=== PATIENT | male | born 1950 | race Caucasian/White ===

== ENCOUNTER 2018-01-24 04:26 | Emergency (ER) | payer MEDICARE, BC ==
[2018-01-24 04:37] VITALS: PULSE 59
[2018-01-24 05:14] LABS: Appearance,Urine Clear (Clear); Bilirubin,Urine Negative (Negative); Blood,Urine Large (Negative); Color,Urine Colorless; Glucose,Urine (UA) Negative (Negative); Ketones,Urine Negative (Negative); Leukocyte Esterase,Urine Large (Negative); Mucus,Urine Rare /hpf; Nitrite,Urine Negative (Negative); Protein,Urine Negative (Negative); Specific Gravity,Urine 1.002 (1.001-1.035); Urobilinogen,Urine <2.0 mg/dL (<2.0); WBC,Urine 79 /hpf (0-5)
[2018-01-24] MEDS ORDERED: LEVOFLOXACIN 750 MG TAB PO STA (05:43)
--- NOTE | 2018-01-24 05:46 | ED ---
Male Urogenital HPI - General Chief complaint: Urogenital Stated complaint: UTI Time Seen by Provider: 01/24/18 04:55 Source: patient Mode of arrival: ambulatory Limitations: no limitations - History of Present Illness Initial comments: This patient is a 67-year-old man with history of chronic prostatitis who presents because he believes he is having symptoms of recurrence of this. He states that this is identical to previous episodes. He states that around 2:00 he got up from bed and had to use the bathroom. Since that time he has had burning with urination. He has been having pain to the low back, just to the right. He states that this is a identical. He has been having episodes like this for many years. He does see the urologist, Dr. Thompson. Patient denies systemic symptoms, including no fever or chills, palpitations, or other symptoms. MD Complaint: dysuria Onset/Timin -: hour(s) Location: right flank Radiation: none Severity: moderate Quality: burning Consistency: constant Improves with: none Worsens with: urination Reports: denies other symptoms - Related Data Previous Rx's Medication Instructions Recorded Ciprofloxacin HCl [Cipro] 500 mg PO Q12HR #28 tablet 01/24/18 Allergies Allergy/AdvReac Type Severity Reaction Status Date / Time Penicillins AdvReac Abdominal Verified 01/24/18 04:36 Pain Review of Systems ROS Statement: Those systems with pertinent positive or pertinent negative responses have been documented in the HPI. ROS Other: All systems not noted in ROS Statement are negative. Constitutional: Denies: fever, chills, weakness Respiratory: Denies: cough, dyspnea Cardiovascular: Denies: chest pain, palpitations, edema Gastrointestinal: Reports: as per HPI. Denies: abdominal pain, nausea, vomiting , diarrhea Genitourinary: Reports: as per HPI, dysuria, frequency. Denies: hematuria, discharge, testicular pain, testicular mass Musculoskeletal: Reports: as per HPI, back pain Skin: Denies: rash Neurological: Denies: headache, weakness, numbness Past Medical History Past Medical History: GERD/Reflux, Hypertension History of Any Multi-Drug Resistant Organisms: None Reported Past Surgical History: Back Surgery, Cholecystectomy, Tonsillectomy Past Psychological History: No Psychological Hx Reported Smoking Status: Never smoker Past Alcohol Use History: None Reported Past Drug Use History: None Reported General Exam Limitations: no limitations General appearance: alert, in no apparent distress Head exam: Present: atraumatic, normocephalic Eye exam: Present: normal appearance. Absent: scleral icterus, conjunctival injection Respiratory exam: Present: normal lung sounds bilaterally. Absent: respiratory distress, wheezes, rales, rhonchi, stridor Cardiovascular Exam: Present: regular rate, normal rhythm, normal heart sounds. Absent: systolic murmur, diastolic murmur, rubs, gallop GI/Abdominal exam: Present: soft, normal bowel sounds. Absent: distended, tenderness, guarding, rebound, rigid, mass, pulsatile mass, hernia Extremities exam: Present: normal inspection, normal capillary refill. Absent: pedal edema, calf tenderness Back exam: Absent: CVA tenderness (R), CVA tenderness (L) Skin exam: Present: warm, dry, intact, normal color. Absent: rash Course Vital Signs 01/24/18 04:33 Temperature 97.6 F Pulse Rate 59 L Respiratory 24 Rate Blood Pressure 143/100 O2 Sat by Pulse 99 Oximetry Medical Decision Making - Lab Data Lab Results 01/24/18 Range/Units 04:59 Urine Color Colorless Urine Appearance Clear (Clear) Urine pH 7.0 (5.0-8.0) Ur Specific [place] 1.002 (1.001-1.035) Urine Protein Negative (Negative) Urine Glucose (UA) Negative (Negative) Urine Ketones Negative (Negative) Urine Blood Large H (Negative) Urine Nitrite Negative (Negative) Urine Bilirubin Negative (Negative) Urine Urobilinogen <2.0 (<2.0) mg/dL Ur Leukocyte Esterase Large H (Negative) Urine WBC 79 H (0-5) /hpf Urine Mucus Rare H (None) /hpf Disposition Clinical Impression: Prostatitis Disposition: HOME SELF-CARE Condition: Fair Instructions: Prostatitis (ED) Prescriptions: Ciprofloxacin HCl [Cipro] 500 mg PO Q12HR #28 tablet Is patient prescribed a controlled substance at d/c from ED?: No Referrals: Luiz Posadas MD [Primary Care Provider] - 1-2 days
[2018-01-24 06:43] VITALS: BP 135/87; RESP 19; TEMP 97.5
[2018-01-26 14:15] LABS: C. trachomatis,PCR Negative (Neg,Equiv); Chlamydia trachomatis Source Urine; N. gonorrhoeae,PCR Negative (Neg,Equiv); Neisseria Source Urine
== END 2018-01-24 06:30 | disposition home or self-care (01) ==
LOC: EC 04:26
DX: N41.9 Inflammatory disease of prostate, unspecified (principal); Z90.49 Acquired absence of other specified parts of digestive tract; Z98.890 Other specified postprocedural states; Z88.0 Allergy status to penicillin
CPT/HCPCS: 51798; 81001; 87491; 87591; 99283

== ENCOUNTER → 2019-01-03 | Outpatient (CLI) | payer MEDICARE ==
--- NOTE | 2019-01-03 15:52 | XR ---
EXAMINATION TYPE: XR chest 2V DATE OF EXAM: 01/03/2019 COMPARISON: Prior chest x-ray 08/31/2012 HISTORY: Bronchitis TECHNIQUE: Frontal and lateral views of the chest are obtained. FINDINGS: There is no focal air space opacity, pleural effusion, or pneumothorax seen. The cardiac silhouette size is within normal limits. The aorta is dense and tortuous. There is bronchial wall thi ckening. The osseous structures are intact. IMPRESSION: Correlate for bronchitis, reactive airways disease
== END | disposition home or self-care (01) ==
LOC: RADXRMAIN 14:05
PROVIDERS: ATTEND Internal Medicine
DX: J20.9 Acute bronchitis, unspecified (principal)
CPT/HCPCS: 71046

== ENCOUNTER 2019-09-21 09:13 | Day surgery (SDC) | payer MEDICARE ==
[2019-09-16 21:05] VITALS: BMI 29.0
[~2019-09-21 09:13] MED LIST: LACTATED RINGERS 1,000 ML IV SCH; LIDOCAINE 1% (10MG/ML) FOR IV START INTRADERMA PRN
[2019-09-21 10:02] VITALS: TEMP 97.8
[2019-09-21] MEDS ORDERED: LIDOCAINE 1% INJ 10MG/ML (20 ML MDV) ONE (10:13)
[2019-09-21] MEDS ORDERED: PROPOFOL 10 MG/ML 20 ML VIAL IV ONE (10:13)
--- NOTE | 2019-09-21 10:20 | P.GSHP ---
History of Present Illness H&P Date: 09/21/19 Chief Complaint: GERD, abdominal pain, history of polyps Patient today for upper and lower endoscopy. Last endoscopy over 5 years ago. Per the admitting diagnosis history of polyp. Complaining of intermittent abdominal pains and nausea. Past Medical History Past Medical History: Cancer, GERD/Reflux, Hearing Disorder / Deafness, Hyperlipidemia, Hypertension Additional Past Medical History / Comment(s): SKIN CANCER History of Any Multi-Drug Resistant Organisms: None Reported Past Surgical History: Back Surgery, Cholecystectomy, Tonsillectomy Additional Past Surgical History / Comment(s): COLONOSCOPY Past Anesthesia/Blood Transfusion Reactions: Previous Problems w/ Anesthesia Additional Past Anesthesia/Blood Transfusion Reaction / Comment(s): PREVIOUS DIFFICULT INTUBATION - RECEIVED A LETTER-UNABLE TO FIND IT Past Psychological History: No Psychological Hx Reported Smoking Status: Never smoker Past Alcohol Use History: None Reported Past Drug Use History: None Reported - Past Family History Mother Sister(s) Family Medical History: Cancer Medications and Allergies Home Medications Medication Instructions Recorded Confirmed Type Atorvastatin [Lipitor] 20 mg PO 1400 09/16/19 09/16/19 History Dicyclomine [Bentyl] 10 mg PO DAILY 09/16/19 09/16/19 History Omeprazole [PriLOSEC] 40 mg PO DAILY 09/16/19 09/16/19 History amLODIPine [Norvasc] 5 mg PO HS 09/16/19 09/16/19 History Allergies Allergy/AdvReac Type Severity Reaction Status Date / Time sulfamethoxazole Allergy Abdominal Verified 09/16/19 15:53 [From Bactrim] Pain trimethoprim [From Bactrim] Allergy Abdominal Verified 09/16/19 15:53 Pain Penicillins AdvReac Abdominal Verified 09/16/19 15:51 Pain Surgical - Exam Vital Signs Temp Pulse Resp BP Pulse Ox 97.8 F 67 16 129/87 99 09/21/19 09:58 09/21/19 09:58 09/21/19 09:58 09/21/19 09:58 09/21/19 09:58 Physical exam: General: Well-developed, well-nourished HEENT: Normocephalic, sclerae nonicteric Abdomen: Nontender, nondistended Extremities: No edema Neuro: Alert and oriented Assessment and Plan (1) GERD (gastroesophageal reflux disease) Narrative/Plan: Will proceed with upper and lower endoscopy Current Visit: Yes Status: Acute Code(s): K21.9 - GASTRO-ESOPHAGEAL REFLUX DISEASE WITHOUT ESOPHAGITIS SNOMED Code(s): 905149418
--- NOTE | 2019-09-21 10:53 | P.PCN ---
Date of Procedure: 09/21/19 Procedure(s) Performed: PREOPERATIVE DIAGNOSIS: GERD, abdominal pain, anal polyp POSTOPERATIVE DIAGNOSIS: Gastritis, gastric polyp, cecal polyp, sigmoid polyp PROCEDURE: 1. EGD with biopsy 2. Colonoscopy with snare polypectomy ANESTHESIA: MAC SURGEON: Mo Khalil M.D. SPECIMENS: Polyps, antrum ENDOSCOPIC PROCEDURE: The patient was on the endoscopy table in the left decubitus position. The Olympus gastroscope was inserted into the oropharynx and passed under direct visualization to the region of the third portion of the duodenum. From that point the scope was slowly withdrawn inspecting all surfaces carefully. There were no neoplastic inflammatory or polypoid lesions throughout the duodenum. The pylorus was widely patent. The stomach was carefully inspected. There was mild gastritis present. A biopsy of the antrum took place to rule out H. pylori. In the proximal stomach a few small polyps are identified that appeared benign. One of these were removed. Retroflexion revealed a normal hiatus. The esophagus was then carefully examined. There were no neoplastic inflammatory or polypoid lesions throughout the visualized esophagus. The patient was kept on the endoscopy table in the left decubitus position. The Olympus colonoscope was inserted into the anus and passed under direct visualization to the base of the cecum. The appendiceal orifice was visualized. From that point the scope was slowly withdrawn inspecting all surfaces carefully. There was noted to be a 2 x 1 cm polyp at the proximal ascending colon just distal to the valve itself. This was removed in a piecemeal fashion using the snare with cautery technique. No bleeding was seen. The remainder of the cecum, ascending, transverse, and descending colon. In the sigmoid colon a small polyp was identified and removed using the snare with cautery technique. The remainder of the sigmoid and rectum was normal. Digital rectal examination was normal. The patient was taken to the recovery room in stable condition per anesthesia guidelines. RECOMMENDATIONS: Await biopsy results. Will require short-term follow-up colonoscopy 6
[2019-09-21 11:11] VITALS: BP 130/86; PULSE 57; RESP 18
== END 2019-09-21 11:34 | disposition home or self-care (01) ==
LOC: ORWHC2ENDO 09:13
PROVIDERS: ATTEND Surgery
DX: D12.5 Benign neoplasm of sigmoid colon (principal); K29.50 Unspecified chronic gastritis without bleeding; K31.7 Polyp of stomach and duodenum; K63.5 Polyp of colon; K21.9 Gastro-esophageal reflux disease without esophagitis; H91.90 Unspecified hearing loss, unspecified ear; E78.5 Hyperlipidemia, unspecified; I10 Essential (primary) hypertension; Z85.828 Personal history of other malignant neoplasm of skin; Z90.49 Acquired absence of other specified parts of digestive tract; Z98.890 Other specified postprocedural states; Z80.9 Family history of malignant neoplasm, unspecified; Z79.899 Other long term (current) drug therapy; Z88.0 Allergy status to penicillin; Z88.2 Allergy status to sulfonamides
CPT/HCPCS: 88305; 45385; 43239; J2001; J2704

== ENCOUNTER → 2019-09-28 | Outpatient (CLI) | payer MEDICARE ==
--- NOTE | 2019-09-28 16:11 | XR ---
Right wrist HISTORY: Right wrist pain, trauma one month prior Four views of the right wrist There are vascular calcifications noted. Osteoarthritic changes are present. Alignment, bone minerali zation are maintained. IMPRESSION: No evident fracture or dislocation. Wrist MRI may be of benefit.
== END | disposition home or self-care (01) ==
LOC: RADXRMAIN 14:26
PROVIDERS: ATTEND Internal Medicine
DX: M25.531 Pain in right wrist (principal)

== ENCOUNTER 2020-05-08 07:11 | Day surgery (SDC) | payer MEDICARE ==
[2020-05-04 08:29] VITALS: BMI 28.8
[~2020-05-08 07:11] MED LIST changes: -LIDOCAINE 1% (10MG/ML) FOR IV START INTRADERMA PRN
[2020-05-08 07:32] VITALS: RESP 16; TEMP 97.7
[2020-05-08] MEDS ORDERED: LIDOCAINE 1% (10MG/ML) FOR IV START INTRADERMA ONE (07:34)
[2020-05-08] MEDS ORDERED: PROPOFOL 10 MG/ML 20 ML VIAL IV ONE (08:00)
--- NOTE | 2020-05-08 08:15 | P.GSHP ---
History of Present Illness H&P Date: 05/08/20 Chief Complaint: Colon polyp 70-year-old male was here in September and underwent colonoscopy. 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 This was removed in a piecemeal fashion. Doing well since then. No symptoms. 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 History of Any Multi-Drug Resistant Organisms: None Reported Past Surgical History: Back Surgery, Cholecystectomy, Tonsillectomy Additional Past Surgical History / Comment(s): COLONOSCOPY /EGD Past Anesthesia/Blood Transfusion Reactions: Previous Problems w/ Anesthesia Additional Past Anesthesia/Blood Transfusion Reaction / Comment(s): PREVIOUS DIFFICULT INTUBATION - LETTER FROM ANESTHESIA ON CHART-STATES GLIDESCOPE WAS USED. -THIS WAS WITH SURGERY FOR LUMBAR DISCECTOMY 12/18/2011. Past Psychological History: No Psychological Hx Reported Smoking Status: Never smoker Past Alcohol Use History: Rare Past Drug Use History: None Reported - Past Family History Mother Sister(s) Family Medical History: Cancer Additional Family Medical History / Comment(s): 2 SISTERS- FEMALE CANCER AND TUMOR ON BACK. Medications and Allergies Home Medications Medication Instructions Recorded Confirmed Type Atorvastatin [Lipitor] 20 mg PO PC-LUNCH 09/16/19 05/08/20 History Dicyclomine [Bentyl] 10 mg PO BID 09/16/19 05/08/20 History Omeprazole [PriLOSEC] 40 mg PO DAILY 09/16/19 05/08/20 History amLODIPine [Norvasc] 5 mg PO HS 09/16/19 05/08/20 History Allergies Allergy/AdvReac Type Severity Reaction Status Date / Time sulfamethoxazole Allergy Abdominal Verified 05/04/20 08:04 [From Bactrim] Pain trimethoprim [From Bactrim] Allergy Abdominal Verified 05/04/20 08:04 Pain Penicillins AdvReac Abdominal Verified 05/04/20 08:04 Pain Surgical - Exam Vital Signs Temp Pulse Resp BP Pulse Ox 97.7 F 56 L 16 140/86 96 05/08/20 07:24 05/08/20 07:24 05/08/20 07:24 05/08/20 07:24 05/08/20 07:24 Physical exam: General: Well-developed, well-nourished HEENT: Normocephalic, sclerae nonicteric Abdomen: Nontender, nondistended Extremities: No edema Neuro: Alert and oriented Assessment and Plan (1) Colon polyp Narrative/Plan: Will proceed with colonoscopy Current Visit: Yes Status: Acute Code(s): K63.5 - POLYP OF COLON SNOMED Code(s): 24084857
--- NOTE | 2020-05-08 08:35 | P.PCN ---
Date of Procedure: 05/08/20 Procedure(s) Performed: PREOPERATIVE DIAGNOSIS: Colon polyp POSTOPERATIVE DIAGNOSIS: Normal exam PROCEDURE: Colonoscopy ANESTHESIA: MAC SURGEON: Mo Khalil M.D. SPECIMENS: None ENDOSCOPIC PROCEDURE: The patient was placed on the endoscopy table in the left decubitus position. The Olympus colonoscope was inserted into the anus and passed under direct visualization to the base of the cecum. The appendiceal orifice was visualized. From that point the scope was slowly withdrawn inspecting all surfaces carefully. There were no neoplastic inflammatory or polypoid lesions throughout the cecum, ascending, transverse, descending, sigmoid and rectum. Careful attention to the cecum and ascending colon to look for the recent polyp was made. I could not visualize any residual polypoid tissue or scarring. There was no visible diverticulosis noted. Digital rectal examination was normal. The patient was taken to the recovery room in stable condition per anesthesia guidelines. RECOMMENDATIONS: Resume diet. Follow colonoscopy 3 years.
[2020-05-08 08:59] VITALS: BP 123/87; PULSE 53
== END 2020-05-08 09:15 | disposition home or self-care (01) ==
LOC: ORWHC2ENDO 07:11
PROVIDERS: ATTEND Surgery
DX: Z12.11 Encounter for screening for malignant neoplasm of colon (principal); Z86.010 Personal history of colon polyps; K21.9 Gastro-esophageal reflux disease without esophagitis; E78.5 Hyperlipidemia, unspecified; I10 Essential (primary) hypertension; Z85.828 Personal history of other malignant neoplasm of skin; J61 Pneumoconiosis due to asbestos and other mineral fibers; Z86.11 Personal history of tuberculosis; Z87.440 Personal history of urinary (tract) infections; N41.1 Chronic prostatitis; Z90.49 Acquired absence of other specified parts of digestive tract; Z98.890 Other specified postprocedural states; Z80.8 Family history of malignant neoplasm of other organs or systems; Z79.899 Other long term (current) drug therapy; Z88.0 Allergy status to penicillin; Z88.2 Allergy status to sulfonamides
CPT/HCPCS: J2704; G0105; 45378

== ENCOUNTER → 2020-08-02 | Outpatient (CLI) | payer MEDICARE ==
--- NOTE | 2020-08-02 09:22 | US ---
EXAMINATION TYPE: US liver DATE OF EXAM: 08/02/2020 COMPARISON: CT & US 2012 CLINICAL HISTORY: E80.7 Disorder of bilirubin metabolism, unspecified. Elevated bilirubin, gallbladde r removed EXAM MEASUREMENTS: Liver Length: 13.9 cm CBD: 0.3 cm Right Kidney: 11.6 x 5.7 x 5.5 cm Pancreas: obscured by overlying midline bowel gas Liver: wnl Gallbladder: surgically absent Evidence for sonographic Garsia's sign: no CBD: visualized portions wnl, limited by overlying bowel gas Right Kidney: wnl IMPRESSION: 1. Normal right upper quadrant ultrasound
== END | disposition home or self-care (01) ==
LOC: RADUSWWP 08:45
PROVIDERS: ATTEND Internal Medicine
DX: E80.7 Disorder of bilirubin metabolism, unspecified (principal)
CPT/HCPCS: 76705

== ENCOUNTER → 2021-10-23 | Outpatient (CLI) | payer MEDICARE ==
--- NOTE | 2021-10-23 13:46 | XR ---
EXAMINATION TYPE: XR sacrum coccyx DATE OF EXAM: 10/23/2021 COMPARISON: NONE HISTORY: Pain Three views are submitted. Sacrum is intact. Vascular calcifications. Right-sided SI joint arthropat hy.. Coccyx appears to be intact. Visualized pelvic structures intact. IMPRESSION: 1. No acute fracture.
== END | disposition home or self-care (01) ==
LOC: RADXRMAIN 13:19
PROVIDERS: ATTEND Internal Medicine
DX: M53.3 Sacrococcygeal disorders, not elsewhere classified (principal)
CPT/HCPCS: 72220

== ENCOUNTER 2022-03-05 08:40 | Inpatient (IN) | payer MEDICARE ==
[2022-03-05 10:35] LABS: Appearance,Urine Clear (Clear); Bilirubin,Urine Negative (Negative); Blood,Urine Negative (Negative); Color,Urine Light Yellow; Glucose,Urine (UA) 1+ (Negative); Ketones,Urine Negative (Negative); Leukocyte Esterase,Urine Negative (Negative); Nitrite,Urine Negative (Negative); Protein,Urine Negative (Negative); Specific Gravity,Urine 1.013 (1.001-1.035); Urobilinogen,Urine <2.0 mg/dL (<2.0)
[2022-03-05] MEDS ORDERED: ONDANSETRON 4 MG/2 ML VIAL IVP STA ×2 (10:40→13:10)
[2022-03-05] MEDS ORDERED: MORPHINE SULFATE 4 MG/ML SYRINGE IVP STA (10:40)
[2022-03-05] MEDS ORDERED: SODIUM CHLORIDE 0.9% 1,000 ML IV STA ×3 (10:41→13:10)
[2022-03-05] MEDS ORDERED: HYDROmorphone 0.5 MG/0.5 ML SYRINGE IVP STA ×2 (10:58→12:07)
[2022-03-05] MEDS ORDERED: FAMOTIDINE 20 MG/2 ML VIAL IV STA (10:59)
[2022-03-05] MEDS ORDERED: diphenhydrAMINE 50 MG/ML 1 ML VIAL IVP STA (10:59)
[2022-03-05 11:04] LABS: Basophils % (A) 0 %; Eosinophils # (A) 0.1 k/uL (0-0.7); Eosinophils % (A) 1 %; HCT 48.3 % (39.0-53.0); HGB 16.2 gm/dL (13.0-17.5); Lymphocytes # (A) 1.3 k/uL (1.0-4.8); Lymphocytes % (A) 12 %; MCHC 33.6 g/dL (31.0-37.0); MCV 101.1 fL (80.0-100.0); Mean Platelet Volume 7.6; Monocytes # (A) 0.8 k/uL (0-1.0); Monocytes % (A) 7 %; Neutrophils % (A) 80 %; Platelet Count 238 k/uL (150-450); RBC 4.78 m/uL (4.30-5.90); RDW 12.7 % (11.5-15.5); WBC 11.3 k/uL (3.8-10.6)
[2022-03-05 11:11] LABS: Calcium 9.5 mg/dL (8.4-10.2); Potassium 3.8 mmol/L (3.5-5.1); Total Bilirubin 1.8 mg/dL (0.2-1.3); Total Protein 7.7 g/dL (6.3-8.2)
--- NOTE | 2022-03-05 12:32 | CT ---
EXAMINATION TYPE: CT abdomen pelvis w con DATE OF EXAM: 03/05/2022 COMPARISON: 04/01/2013 HISTORY: 72-year-old male Left flank pain, history of renal stones TECHNIQUE: Contiguous axial scanning of the abdomen and pelvis following administration of 100 ml Iso cheyanne 300 IV contrast. Delayed images through the kidneys and coronal/sagittal reconstructions perform ed. CT DLP: 1325.9 mGycm Automated exposure control for dose reduction was used. FINDINGS: Heart normal size without pericardial effusion. Strandy atelectasis in the lower lungs. No pleural ef fusion. Tiny hiatal hernia. No focal liver lesion or biliary ductal dilatation. Portal venous system is patent. Cholecystectomy clips. Prominent 8mm gastric hepatic ligament lymph node, probably reactive/post inflammatory. A few scattered nonenlarged retroperitoneal nodes measuring up to 8 mm. Some borderline-sized 9 mm right lower quadrant mesenteric lymph nodes. No mesenteric or retroperitoneal lymphadenopathy by size criteria. Adrenal glands, right kidney, spleen, and pancreas within normal limits. There is mild left-sided hydronephrosis with perinephric edema and mild to moderate edema tracking do wn the left retroperitoneum, probably some decompression of the ureter from a small urine leak. There is a punctate 2 mm stone at the left ureteral orifice, axial image 86. Delayed excretion of contrast into the left renal collecting system on the delayed kidney images. Some prominent fluid-filled small bowel loops in the right lower quadrant measuring up to 2.6 cm, pro bably transient. Small fatty left inguinal hernia. No abnormal fluid collection in the pelvis or pelvic lymphadenopath y. Bladder partially urine distended. Prostate gland is enlarged at 5.2 cm wide. Bones: Mild degenerative change of both hips. Mild to moderate degenerative change right SI joint. Fa cet arthropathy mid to lower lumbar spine. Moderate degenerative disc disease L4-L5 and mild addition al levels in the lumbar spine. IMPRESSION: 1. A PUNCTATE 2 MM STONE AT THE LEFT URETERAL ORIFICE WITH SECONDARY LEFT-SIDED OBSTRUCTIVE UROPATHY. THE DEGREE OF HYDRONEPHROSIS IS OUT OF PROPORTION TO THE AMOUNT OF STRANDY FLUID TRACKING DOWN THE L EFT RETROPERITONEUM. SUSPECT SOME DECOMPRESSION OF THE URETER FROM A TINY URINE LEAK. 2. TINY HIATAL HERNIA. SMALL FAT-CONTAINING LEFT INGUINAL HERNIA. PROSTATOMEGALY AT 5.2 CM WIDE.
[2022-03-05] MEDS ORDERED: HYDROmorphone 0.5 MG/0.5 ML SYRINGE IVP PRN (13:10)
[2022-03-05] MEDS ORDERED: NALOXONE 0.4 MG/ML 1 ML VIAL IV PRN (13:10)
--- NOTE | 2022-03-05 13:14 | US ---
EXAMINATION TYPE: US kidneys/renal and bladder DATE OF EXAM: 03/05/2022 COMPARISON: CT, dated 03/05/2022 CLINICAL HISTORY: eval for hydronephrosis. left flank pain. Hx frequent UTIs. Evaluate for hydronephr osis, intense left flank pain and midline abdominal pain. EXAM MEASUREMENTS: Right Kidney: 12.7 x 6.5 x 5.6 cm Left Kidney: 12.4 x 6.3 x 7.4 cm Limited due to gas. Right Kidney: Cortical medullary differentiation maintained. No hydronephrosis or masses seen Left Kidney: Cortical medullary differentiation is maintained. Appearance of possible minimally dilat ed mid- lower collecting system Bladder: Appears anechoic Bilateral Jets seen: Right jet seen during exam. IMPRESSION: Exam somewhat limited. Mild left-sided hydronephrosis.
[2022-03-05] MEDS: TAMSULOSIN 0.4 MG CAP.ER.24H PO SCH (13:20)
--- NOTE | 2022-03-05 13:44 | ED ---
General Adult HPI - General Chief complaint: Abdominal Pain Stated complaint: Kidney Stones Time Seen by Provider: 03/05/22 09:58 Source: patient, RN notes reviewed, old records reviewed Mode of arrival: ambulatory Limitations: no limitations - History of Present Illness Initial comments: Patient is a 72-year-old male with past medical history remarkable for prostate issues, hypertension who presents emergency Department complaining of left flank pain that started early this morning. Is having nausea. Patient is unable to get comfortable on the bed. His experiencing severe left-sided flank pain. Denies any hematuria or dysuria. He endorses nausea with nonbilious, bloody emesis. Denies any change in bowel movements and states she is not constipated. Denies any other abdominal pain at this time. Denies chest pain or shortness of breath. Denies fevers or chills. His no other acute complaints. No history of kidney stones. Prescription the pain as sharp, and seems to radiate somewhat towards his back and somewhat down towards his groin. - Related Data Home Medications Medication Instructions Recorded Confirmed Atorvastatin [Lipitor] 20 mg PO PC-LUNCH 09/16/19 05/08/20 Dicyclomine [Bentyl] 10 mg PO BID 09/16/19 05/08/20 Omeprazole [PriLOSEC] 40 mg PO DAILY 09/16/19 05/08/20 amLODIPine [Norvasc] 5 mg PO HS 09/16/19 05/08/20 Allergies Allergy/AdvReac Type Severity Reaction Status Date / Time sulfamethoxazole Allergy Abdominal Verified 03/05/22 09:06 [From Bactrim] Pain trimethoprim [From Bactrim] Allergy Abdominal Verified 03/05/22 09:06 Pain Penicillins AdvReac Abdominal Verified 03/05/22 09:06 Pain Review of Systems ROS Statement: Those systems with pertinent positive or pertinent negative responses have been documented in the HPI. Review of Systems: CONST: Denies fever EYES: Denies blurry vision ENT: Denies nasal congestion C/V: Denies Chest pain RESP: Denies shortness of breath GI: Endorses abdominal pain : Denies dysuria SKIN: Denies rash. MSK: Denies joint pain. NEURO: Denies headache ROS Other: All systems not noted in ROS Statement are negative. 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 History of Any Multi-Drug Resistant Organisms: None Reported Past Surgical History: Back Surgery, Cholecystectomy, Tonsillectomy Additional Past Surgical History / Comment(s): COLONOSCOPY /EGD Past Anesthesia/Blood Transfusion Reactions: Previous Problems w/ Anesthesia Additional Past Anesthesia/Blood Transfusion Reaction / Comment(s): PREVIOUS DIFFICULT INTUBATION - LETTER FROM ANESTHESIA ON CHART-STATES GLIDESCOPE WAS USED. -THIS WAS WITH SURGERY FOR LUMBAR DISCECTOMY 12/18/2011. Past Psychological History: No Psychological Hx Reported Smoking Status: Never smoker Past Alcohol Use History: Rare Past Drug Use History: None Reported - Past Family History Mother Sister(s) Family Medical History: Cancer Additional Family Medical History / Comment(s): 2 SISTERS- FEMALE CANCER AND TUMOR ON BACK. General Exam - General Exam Comments Initial Comments: General: Appears in moderate distress secondary to pain and active nausea and vomiting. HEAD: Normal with no signs of head trauma. EYES: PERRLA, EOMI, conjunctiva normal, no discharge. ENT: Hearing grossly intact, normal oropharynx. RESPIRATORY: Clear breath sounds bilaterally. No wheezes, rales, or rhonchi. C/V: Regular rate and rhythm. S1 and S2 auscultated, no edema, peripheral pulses 2+ and intact throughout ABD: Abdomen is soft, nondistended. Tender to palpation over the left flank and left lower quadrant. No CVA tenderness to percussion. No guarding. No rebound tenderness. No peritoneal signs. EXT: Normal range of motion, no obvious deformity SKIN: No rashes or lesions observed on exposed skin. NEURO: Alert and oriented 4. Limitations: no limitations Course Vital Signs 03/05/22 03/05/22 09:02 13:25 Temperature 98.9 F Pulse Rate 55 L 62 Respiratory 20 18 Rate Blood Pressure 161/85 151/88 O2 Sat by Pulse 99 96 Oximetry Medical Decision Making - Medical Decision Making Based on the patient's presentation and physical exam, I'm concerned for age abdominal process for the patient's current symptoms. Strongly suspect kidney stone but cannot rule out other etiology. Does have a history of chronic prostate issues. We'll obtain abdominal laboratory studies, urine studies. We'll also obtain an ultrasound of the kidney and bladder as well as a CT abdomen and pelvis. He'll be treated with IV analgesia and antiemetics as well as GI cocktail and fluids. Patient was in agreement this plan. Laboratory studies are remarkable for a slight leukocytosis of 11.3 which is likely reactive. Lactic acid is elevated to 3.0, likely secondary to dehydration from intractable nausea and vomiting. We'll continue to monitor. Urinalysis is unremarkable. Remainder the labs are unremarkable. CT abdomen and pelvis revealed a small 2 mm nephrolithiasis at the left ureteral orifice with secondary left-sided obstructive uropathy with mild hydronephrosis. There is also a small tiny urine leak on the left side. Prostate is enlarged. Ult rasound revealed mild left-sided hydronephrosis. Patient is required multiple doses of pain medications throughout his stay. Vital signs remain within normal limits. I discussed the findings with him and his . Would like to admit him to the hospital for further monitoring and evaluation. I did consult Dr. Rosen of urology and spoke with him over the phone regarding the urine leak. He was in agreement with the consult. Patient's PCP is off and therefore patient will be admitted under the covering physician, Dr. Robbins who is covering for Dr. Posadas and accepted the patient. Patient was admitted in stable condition. - Lab Data Result diagrams: 03/05/22 10:43 03/05/22 10:43 Lab Results 03/05/22 03/05/22 03/05/22 Range/Units 09:53 10:43 10:43 WBC 11.3 H (3.8-10.6) k/uL RBC 4.78 (4.30-5.90) m/uL Hgb 16.2 (13.0-17.5) gm/dL Hct 48.3 (39.0-53.0) % MCV 101.1 H (80.0-100.0) fL MCH 34.0 (25.0-35.0) pg MCHC 33.6 (31.0-37.0) g/dL RDW 12.7 (11.5-15.5) % Plt Count 238 (150-450) k/uL MPV 7.6 Neutrophils % 80 % Lymphocytes % 12 % Monocytes % 7 % Eosinophils % 1 % Basophils % 0 % Neutrophils # 9.0 H (1.3-7.7) k/uL Lymphocytes # 1.3 (1.0-4.8) k/uL Monocytes # 0.8 (0-1.0) k/uL Eosinophils # 0.1 (0-0.7) k/uL Basophils # 0.0 (0-0.2) k/uL Sodium 142 (137-145) mmol/L Potassium 3.8 (3.5-5.1) mmol/L Chloride 106 (98-107) mmol/L Carbon Dioxide 23 (22-30) mmol/L Anion Gap 13 mmol/L BUN 14 (9-20) mg/dL Creatinine 1.00 (0.66-1.25) mg/dL Est GFR (CKD-EPI)AfAm 87 (>60 ml/min/1.73 sqM) Est GFR (CKD-EPI)NonAf 75 (>60 ml/min/1.73 sqM) Glucose 159 H (74-99) mg/dL Plasma Lactic Acid Ortega (0.7-2.0) mmol/L Calcium 9.5 (8.4-10.2) mg/dL Total Bilirubin 1.8 H (0.2-1.3) mg/dL AST 31 (17-59) U/L ALT 28 (4-49) U/L Alkaline Phosphatase 105 (38-126) U/L Total Protein 7.7 (6.3-8.2) g/dL Albumin 5.0 (3.5-5.0) g/dL Amylase 46 (30-110) U/L Lipase 149 (23-300) U/L Urine Color Light Yellow Urine Appearance Clear (Clear) Urine pH 8.0 (5.0-8.0) Ur Specific Merritt 1.013 (1.001-1.035) Urine Protein Negative (Negative) Urine Glucose (UA) 1+ H (Negative) Urine Ketones Negative (Negative) Urine Blood Negative (Negative) Urine Nitrite Negative (Negative) Urine Bilirubin Negative (Negative) Urine Urobilinogen <2.0 (<2.0) mg/dL Ur Leukocyte Esterase Negative (Negative) 03/05/22 Range/Units 11:17 WBC (3.8-10.6) k/uL RBC (4.30-5.90) m/uL Hgb (13.0-17.5) gm/dL Hct (39.0-53.0) % MCV (80.0-100.0) fL MCH (25.0-35.0) pg MCHC (31.0-37.0) g/dL RDW (11.5-15.5) % Plt Count (150-450) k/uL MPV Neutrophils % % Lymphocytes % % Monocytes % % Eosinophils % % Basophils % % Neutrophils # (1.3-7.7) k/uL Lymphocytes # (1.0-4.8) k/uL Monocytes # (0-1.0) k/uL Eosinophils # (0-0.7) k/uL Basophils # (0-0.2) k/uL Sodium (137-145) mmol/L Potassium (3.5-5.1) mmol/L Chloride (98-107) mmol/L Carbon Dioxide (22-30) mmol/L Anion Gap mmol/L BUN (9-20) mg/dL Creatinine (0.66-1.25) mg/dL Est GFR (CKD-EPI)AfAm (>60 ml/min/1.73 sqM) Est GFR (CKD-EPI)NonAf (>60 ml/min/1.73 sqM) Glucose (74-99) mg/dL Plasma Lactic Acid Ortega 3.0 H* (0.7-2.0) mmol/L Calcium (8.4-10.2) mg/dL Total Bilirubin (0.2-1.3) mg/dL AST (17-59) U/L ALT (4-49) U/L Alkaline Phosphatase (38-126) U/L Total Protein (6.3-8.2) g/dL Albumin (3.5-5.0) g/dL Amylase (30-110) U/L Lipase (23-300) U/L Urine Color Urine Appearance (Clear) Urine pH (5.0-8.0) Ur Specific Merritt (1.001-1.035) Urine Protein (Negative) Urine Glucose (UA) (Negative) Urine Ketones (Negative) Urine Blood (Negative) Urine Nitrite (Negative) Urine Bilirubin (Negative) Urine Urobilinogen (<2.0) mg/dL Ur Leukocyte Esterase (Negative) Disposition Clinical Impression: Left nephrolithiasis, Intractable nausea and vomiting, Intractable abdominal pain, Dehydration Disposition: ADMITTED IP TO THIS HOSP Condition: Stable Referrals: Luiz Posadas MD [Primary Care Provider] - 1-2 days Time of Disposition: 13:00
[2022-03-05] MEDS: HEPARIN SODIUM,PORCINE/PF 5,000 UNIT/0.5 ML SYRINGE SQ SCH ×2 (15:26→23:08)
[2022-03-05] MEDS: ONDANSETRON 4 MG/2 ML VIAL IVP PRN (21:06)
[2022-03-05] MEDS: MORPHINE SULFATE 4 MG/ML SYRINGE IVP PRN (21:06)
[2022-03-05] MEDS: amLODIPine 5 MG TAB PO SCH (21:07)
[2022-03-06] MEDS: MORPHINE SULFATE 4 MG/ML SYRINGE IVP PRN ×5 (00:42→12:49)
[2022-03-06] MEDS: ONDANSETRON 4 MG/2 ML VIAL IVP PRN ×2 (03:20→16:46)
[2022-03-06] MEDS ORDERED: KETOROLAC 15 MG/ML 1 ML VIAL IVP STA (04:02)
--- NOTE | 2022-03-06 04:17 | HP ---
HISTORY AND PHYSICAL CHIEF COMPLAINT: Abdominal pain. HISTORY OF PRESENT ILLNESS: This 72-year-old gentleman with past medical history being followed Dr. Posadas in the outpatient setting, was admitted with abdominal pain. The pain was mostly in the left side and flank pain. The patient was uncomfortable. The patient was given pain medications. Evaluation showed left hydronephrosis. His white count is also elevated, lactic acid elevated. The patient is admitted for evaluation and treatment. There is no history of any fever, rigors, or chills at this time. PAST MEDICAL HISTORY: Reviewed and includes hypertension, hyperlipidemia. HOME MEDICATIONS: Again reviewed and include Norvasc 5 mg daily. Doses and the rest of medications noted. ALLERGIES: Reviewed and include Bactrim. FAMILY HISTORY: Cancer. SOCIAL HISTORY: No history of smoking or alcohol. REVIEW OF SYSTEMS: A 14-point review of systems is negative except as mentioned earlier. PHYSICAL EXAMINATION: VITAL SIGNS: Pulse is 55, blood pressure 161/85, respirations NORMAL ABDOMEN: Soft, mild diffuse tenderness in the left side and left flank tenderness also present. Bowel sounds present. No ascites. EXTREMITIES: Legs, no edema. NERVOUS SYSTEM: No focal deficit. SKIN: No ulcer, rash, bleeding. JOINTS: No active deforming arthropathy. LABORATORY DATA: WBC 11.3. Other labs are noted. ASSESSMENT: 1. Acute left ureterolithiasis and severe pain. 2. Left hydronephrosis and possible urinary tract infection. 3. Hypertension. 4. Hyperlipidemia. 5. Multiple medical issues. RECOMMENDATIONS AND DISCUSSION: This is a 72-year-old gentleman who presented with multiple complex medical issues, we will monitor the patient closely. Symptomatic treatment. Continue the current medication. DVT prophylaxis. I would also recommend a course of antibiotics and obtain the cultures. Resume the home medications once they are confirmed. Closely follow with Urology. Guarded prognosis. Flomax has been initiated. MMODL / IJN: [id number] / MTDD
[2022-03-06] MEDS ORDERED: fentaNYL (PF) 50 MCG/ML 2 ML AMP IVP ONE ×2 (06:40→16:40)
--- NOTE | 2022-03-06 08:09 | P.PN ---
Subjective Progress Note Date: 03/06/22 The patient is in the hospital for a distal but obstructing left ureteral stone. He had pain throughout the nite and sis still in pain this am. I will set him up for a left ureteroscopy and laser lithotripsy later today. Objective - Vital Signs Vital signs: Vital Signs Temp 98.4 F 03/06/22 07:37 Pulse 66 03/06/22 07:37 Resp 17 03/06/22 07:37 BP 134/78 03/06/22 07:37 Pulse Ox 92 L 03/06/22 07:37 FiO2 Intake & Output 03/05/22 03/06/22 03/06/22 18:59 06:59 18:59 Output Total 1240 Balance -1240 Weight 99.79 kg 99.79 kg Output: Urine 1240 Other: Voiding Method Toilet # Voids 0 1 - Labs CBC & Chem 7: 03/05/22 10:43 03/05/22 10:43 Labs: Abnormal Lab Results - Last 24 Hours (Table) 03/05/22 03/05/22 03/05/22 Range/Units 09:53 10:43 10:43 WBC 11.3 H (3.8-10.6) k/uL MCV 101.1 H (80.0-100.0) fL Neutrophils # 9.0 H (1.3-7.7) k/uL Glucose 159 H (74-99) mg/dL Plasma Lactic Acid Ortega (0.7-2.0) mmol/L Total Bilirubin 1.8 H (0.2-1.3) mg/dL Urine Glucose (UA) 1+ H (Negative) 03/05/22 03/05/22 Range/Units 11:17 15:15 WBC (3.8-10.6) k/uL MCV (80.0-100.0) fL Neutrophils # (1.3-7.7) k/uL Glucose (74-99) mg/dL Plasma Lactic Acid Ortega 3.0 H* 2.1 H* (0.7-2.0) mmol/L Total Bilirubin (0.2-1.3) mg/dL Urine Glucose (UA) (Negative)
[2022-03-06] MEDS: TAMSULOSIN 0.4 MG CAP.ER.24H PO SCH (09:27)
[2022-03-06] MEDS: HEPARIN SODIUM,PORCINE/PF 5,000 UNIT/0.5 ML SYRINGE SQ SCH ×2 (09:54→15:05)
[2022-03-06 10:46] LABS: Basophils # (A) 0.02 X 10*3/uL (0.00-0.10); Basophils % (A) 0.1 %; Eosinophils # (A) 0 X 10*3/uL (0.04-0.35); Eosinophils % (A) 0 %; HCT 45.6 % (39.6-50.0); Immature Grans, Automated 0.4 %; Lymphocytes # (A) 1.42 X 10*3/uL (0.90-5.00); Lymphocytes % (A) 8.7 %; MCH 32.6 pg (27.0-32.0); MCHC 32.9 g/dL (32.0-37.0); MCV 99.1 fL (80.0-97.0); Mean Platelet Volume 9.5 fL (9.5-12.2); Monocytes # (A) 1.43 X 10*3/uL (0.20-1.00); Monocytes % (A) 8.8 %; NRBC Per 100 WBC 0 /100 WBCS (0.0-0.0); Neutrophils # (A) 13.38 X 10*3/uL (1.80-7.70); Platelet Count 197 X 10*3/uL (140-440); RDW 13.1 % (11.5-14.5); WBC 16.31 X 10*3/uL (4.50-10.00)
[2022-03-06 11:12] LABS: African American GFR (CKD) 63.6 (60.0-200.0); Albumin 4.5 g/dL (3.8-4.9); Albumin/Globulin Ratio 2.05 (1.60-3.17); Anion Gap 11.7 mmol/L (10.00-18.00); BUN/Creat Ratio 10.23 Ratio (12.00-20.00); Blood Urea Nitrogen 13.3 mg/dL (9.0-27.0); Calcium 8.8 mg/dL (8.7-10.3); Carbon Dioxide 23.3 mmol/L (20.0-27.5); Globulin 2.2 g/dL (1.6-3.3); Non-African American GFR(CKD) 54.9 (60.0-200.0); Potassium 4.6 mmol/L (3.5-5.5); Total Protein 6.7 g/dL (6.2-8.2)
[2022-03-06] MEDS: ATORVASTATIN 20 MG TAB PO SCH (13:47)
[2022-03-06] MEDS ORDERED: LACTATED RINGERS 1,000 ML IV ONE (15:54)
--- NOTE | 2022-03-06 18:57 | P.OP ---
Date of Procedure: 03/06/22 Preoperative Diagnosis: Left ureteral calculus with colic Postoperative Diagnosis: Same Procedure(s) Performed: Cystoscopy, left ureteroscopy with laser lithotripsy Anesthesia: GETA Estimated Blood Loss (ml): 0 Pathology: other (Stone) Disposition: PACU Indications for Procedure: The patient is 72. He is in the hospital with a 2-3 mm left ureterovesical junction stone causing persistent colic. He is unable to be comfortable for 24 hours. He comes for ureteroscopy Description of Procedure: Patient brought to the operating suite. Given general anesthesia. Placed in lithotomy position with a sterile prep and drape. Cystoscopy Foroblique lens and 21-Nauruan sheath identifies normal urethra. Prostate shows some obstruction. The bladder mai unremarkable. The left ureteral orifice is edematous. With the 7-Nauruan mini ureteroscope I'm able to advance the scope up to the stone. The stone was broken into tiny fragments with the 350 probe. The fragments are flushed out of the ureter. There is not enough edema to leave a stent The patient is awakened and returned recovery room good condition Impression successful removal of left ureteral stone. The patient can be discharged home upon recovery tonight or tomorrow. He should be seen in approximately 2 weeks.
[2022-03-07] MEDS: amLODIPine 5 MG TAB PO SCH (02:23)
[2022-03-07] MEDS: HEPARIN SODIUM,PORCINE/PF 5,000 UNIT/0.5 ML SYRINGE SQ SCH ×2 (02:23→09:38)
--- NOTE | 2022-03-07 08:06 | P.PN ---
Subjective Progress Note Date: 03/07/22 The patient was admitted for an obstructing left ureteral stone. His colic persisted for 24 hours therefore yesterday afternoon he had a ureteroscopy and laser lithotripsy to the distal left ureteral stone. He feels totally better this morning. His voided without difficulty. His pain is completely gone. From urologic standpoint he can be discharged home. I'll see him in the office in one week. Objective - Vital Signs Vital signs: Vital Signs Temp 98.0 F 03/07/22 07:38 Pulse 75 03/07/22 07:38 Resp 17 03/07/22 07:38 BP 134/78 03/07/22 07:38 Pulse Ox 94 L 03/07/22 07:38 FiO2 Intake & Output 03/06/22 03/07/22 03/07/22 18:59 06:59 18:59 Intake Total 300 0 Output Total 400 350 Balance -100 -350 Intake: IV 300 0 Output: Urine 400 350 Other: Voiding Method Toilet Toilet # Voids 1 # Bowel Movements 0 - Labs CBC & Chem 7: 03/06/22 08:07 03/06/22 08:07 Labs: Abnormal Lab Results - Last 24 Hours (Table) 03/06/22 03/06/22 Range/Units 08:07 08:07 WBC 16.31 H (4.50-10.00) X 10*3/uL MCV 99.1 H (80.0-97.0) fL MCH 32.6 H (27.0-32.0) pg Immature Gran # 0.06 H (0.00-0.04) X 10*3/uL Neutrophils # 13.38 H (1.80-7.70) X 10*3/uL Monocytes # 1.43 H (0.20-1.00) X 10*3/uL Eosinophils # 0 L (0.04-0.35) X 10*3/uL Est GFR (CKD-EPI)NonAf 54.9 L (60.0-200.0) BUN/Creatinine Ratio 10.23 L (12.00-20.00) Ratio Glucose 122 H (70-110) mg/dL Total Bilirubin 2.00 H (0.30-1.20) mg/dL Microbiology - Last 24 Hours (Table) 03/05/22 15:15 Blood Culture - Preliminary Blood No Growth after 24 hours 03/05/22 15:15 Blood Culture - Preliminary Blood No Growth after 24 hours
--- NOTE | 2022-03-07 08:24 | PN ---
PROGRESS NOTE SUBJECTIVE: This is a 72-year-old gentleman who was admitted with significant left urolithiasis, being closely monitored. Urology is planning cystoscopy. No chest pain, no palpitations, no fever. PHYSICAL EXAMINATION: VITAL SIGNS: Pulse , blood pressure , and respirations 17. HEENT: Conjunctivae normal. RESPIRATIONS: Breath sounds . No rhonchi. No crackles. ABDOMEN: Soft, minimal tenderness on the left side. NERVOUS SYSTEM: No focal deficits. LABS: , rest of the labs are noted. ASSESSMENT: 1. Acute left urolithiasis and severe pain. 2. Left hydronephrosis and possible urinary tract infection. 3. Hypertension. 4. Hyperlipidemia. 5. Multiple medical issues. RECOMMENDATIONS AND DISCUSSION: I recommend to continue current management and treatment, urology evaluation. I would also recommend to continue the antibiotic at this time, await cultures. Further recommendations to follow. MMODL / IJN: [id number] /
--- NOTE | 2022-03-07 09:12 | FL ---
Intraoperative/procedural fluoroscopic services were provided. Total fluoroscopy time is #1 seconds w ith a total of 0 submitted images to PACS. Please see the operative/procedural note for further detai ls.
[2022-03-07] MEDS: ATORVASTATIN 20 MG TAB PO SCH (09:38)
[2022-03-07] MEDS: TAMSULOSIN 0.4 MG CAP.ER.24H PO SCH (09:38)
[2022-03-07 14:18] VITALS: BP 121/70; PULSE 70; RESP 18; TEMP 97.9
== END 2022-03-07 16:09 | disposition home or self-care (01) | DRG 694 ==
LOC: EC 08:40 → 4SSUR 13:10
PROVIDERS: ADMIT Hospitalist; ATTEND Hospitalist
PROC: 0TC78ZZ Extirpation of Matter from Left Ureter, Via Natural or Artificial Opening Endoscopic (ICD-10-PCS; principal; 2022-03-06 07:30)
DX: N13.2 Hydronephrosis with renal and ureteral calculous obstruction (principal); N13.8 Other obstructive and reflux uropathy; E78.5 Hyperlipidemia, unspecified; N40.1 Benign prostatic hyperplasia with lower urinary tract symptoms; I10 Essential (primary) hypertension; E86.0 Dehydration; K21.9 Gastro-esophageal reflux disease without esophagitis; R76.11 Nonspecific reaction to tuberculin skin test without active tuberculosis; Z79.899 Other long term (current) drug therapy; Z85.828 Personal history of other malignant neoplasm of skin; Z87.440 Personal history of urinary (tract) infections; Z87.19 Personal history of other diseases of the digestive system; Z88.0 Allergy status to penicillin; Z88.2 Allergy status to sulfonamides; Z90.49 Acquired absence of other specified parts of digestive tract; Z80.49 Family history of malignant neoplasm of other genital organs; Z80.8 Family history of malignant neoplasm of other organs or systems; Z86.19 Personal history of other infectious and parasitic diseases
CPT/HCPCS: 36415; 74177; 76770; 80053; 81003; 82150; 82365; 83605; 83690; 85025; 87040; 96361; 96365; 96372; 96375; 96376; 99285

== ENCOUNTER → 2022-05-20 | Outpatient (CLI) | payer MEDICARE ==
--- NOTE | 2022-05-20 13:52 | US ---
EXAMINATION TYPE: US venous doppler duplex LE RT DATE OF EXAM: 05/20/2022 1:30 PM COMPARISON: NONE CLINICAL HISTORY: 72-year-old male RLE I80.01 PHLEBITIS AND THOMBOPHLB OF SUPERFIC VESSELS OF Fatuma Beal ent states a log hit his leg x 3 weeks ago and feels a knot. SIDE PERFORMED: Right TECHNIQUE: The lower extremity deep venous system is examined utilizing real time linear array sonog cathie with graded compression, doppler sonography and color-flow sonography. FINDINGS: VESSELS IMAGED: Common Femoral Vein Deep Femoral Vein Greater Saphenous Vein * Femoral Vein Popliteal Vein Small Saphenous Vein * Proximal Calf Veins (* superficial vessels) Right Leg: Negative for DVT. Area of concern scanned at medial calf with superficial, oval echogeni c area seen= 3.7 x 2.7 x 1.1 cm IMPRESSION: 1. No evidence for DVT within the right lower extremity imaged from the groin to the upper calf. 2. A 3.7 x 2.7 x 1.1 cm oval echogenic area seems to be centered in the subcutaneous adipose layer at the medial calf corresponding to the site of palpable abnormality. A subcutaneous hematoma is suspec sd. Follow-up ultrasound in 2-3 months to ensure involution.
== END | disposition home or self-care (01) ==
LOC: RADUSWWP 12:42
PROVIDERS: ATTEND Internal Medicine
DX: I80.01 Phlebitis and thrombophlebitis of superficial vessels of right lower extremity (principal)

== ENCOUNTER → 2022-07-18 | Outpatient (CLI) | payer MEDICARE ==
--- NOTE | 2022-07-18 13:18 | US ---
EXAMINATION TYPE: US venous doppler duplex LE RT DATE OF EXAM: 07/18/2022 12:39 PM COMPARISON: Prior ultrasound May 20, 2022 CLINICAL HISTORY: M79.81 NONTRAUMATIC HEMATOMA OF SOFT TISSUE. SIDE PERFORMED: Right TECHNIQUE: The lower extremity deep venous system is examined utilizing real time linear array sonog cathie with graded compression, doppler sonography and color-flow sonography. VESSELS IMAGED: Common Femoral Vein Deep Femoral Vein Greater Saphenous Vein * Femoral Vein Popliteal Vein Small Saphenous Vein * Proximal Calf Veins (* superficial vessels) Right Leg: Negative for DVT Previous area of swelling no longer swollen. Grayscale, color doppler, spectral doppler imaging performed of the deep veins of the right lower ext remity. There is normal flow, compressibility, vascular waveforms. IMPRESSION: No ultrasound evidence for acute DVT in the right lower extremity.
== END | disposition home or self-care (01) ==
LOC: RADUSWWP 12:08
PROVIDERS: ATTEND Internal Medicine
DX: M79.81 Nontraumatic hematoma of soft tissue (principal)

== ENCOUNTER → 2023-01-28 | Outpatient (CLI) | payer MEDICARE ==
--- NOTE | 2023-01-28 11:55 | XR ---
EXAMINATION TYPE: XR chest 2V DATE OF EXAM: 01/28/2023 10:34 AM COMPARISON: Chest radiographs from 01/03/2019 TECHNIQUE: XR chest 2V Frontal and lateral views of the chest. 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 Pulmonary vascularity: Unremarkable. Heart/mediastinum: Cardiomediastinal silhouette is unremarkable. Musculoskeletal: No acute osseous pathology. IMPRESSION: No acute cardiopulmonary disease/process.
== END | disposition home or self-care (01) ==
LOC: RADXRMAIN 10:25
PROVIDERS: ATTEND Internal Medicine
DX: D36.9 Benign neoplasm, unspecified site (principal)
CPT/HCPCS: 71046

== ENCOUNTER 2023-02-05 23:02 | Inpatient (IN) | payer MEDICARE ==
--- NOTE | 2023-02-05 23:53 | ED ---
General Adult HPI - General Chief complaint: Chest Pain Stated complaint: Chest Pain Time Seen by Provider: 02/05/23 23:10 Source: family Mode of arrival: wheelchair Limitations: no limitations - History of Present Illness Initial comments: Dictation was produced using [employer] dictation software. please excuse any grammatical, word or spelling errors. Chief Complaint: 73-year-old male presents to emergency room with chest pressure History of Present Illness: To 73-year-old male presents emergency Department chest pressure. Patient states that he has been having on and off symptoms for the last several weeks. Decided come to the ER today because symptoms have been noticeably increasing in severity and intensity. States it doesn't usually last this long. States it is substernal pressure. Nonradiating. Not associated nausea or diaphoresis. Patient denies any cardiac history. Denies any associated shortness of breath The ROS documented in this emergency department record has been reviewed and confirmed by me. Those systems with pertinent positive or negative responses have been documented in the HPI. All other systems are other negative and/or noncontributory. - Related Data Home Medications Medication Instructions Recorded Confirmed Atorvastatin [Lipitor] 20 mg PO DAILY@1200 09/16/19 03/05/22 Dicyclomine [Bentyl] 10 mg PO DAILY 09/16/19 03/05/22 Omeprazole [PriLOSEC] 40 mg PO DAILY 09/16/19 03/05/22 amLODIPine [Norvasc] 5 mg PO HS 09/16/19 03/05/22 metroNIDAZOLE [metroNIDAZOLE 0.75% 1 applic TOPICAL DAILY PRN 03/05/22 03/05/22 Gel] Previous Rx's Medication Instructions Recorded Cephalexin [Keflex] 500 mg PO Q8HR 5 Days #15 cap 03/07/22 Tamsulosin [Flomax] 0.4 mg PO DAILY 30 Days #30 cap 03/07/22 Allergies Allergy/AdvReac Type Severity Reaction Status Date / Time sulfamethoxazole Allergy Abdominal Verified 02/05/23 23:07 [From Bactrim] Pain trimethoprim [From Bactrim] Allergy Abdominal Verified 02/05/23 23:07 Pain Penicillins AdvReac Abdominal Verified 02/05/23 23:07 Pain Review of Systems ROS Statement: Those systems with pertinent positive or pertinent negative responses have been documented in the HPI. ROS Other: All systems not noted in ROS Statement are negative. 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 History of Any Multi-Drug Resistant Organisms: None Reported Past Surgical History: Back Surgery, Cholecystectomy, Tonsillectomy Additional Past Surgical History / Comment(s): COLONOSCOPY /EGD Past Anesthesia/Blood Transfusion Reactions: Previous Problems w/ Anesthesia Additional Past Anesthesia/Blood Transfusion Reaction / Comment(s): PREVIOUS DIFFICULT INTUBATION - LETTER FROM ANESTHESIA ON CHART-STATES GLIDESCOPE WAS USED. -THIS WAS WITH SURGERY FOR LUMBAR DISCECTOMY 12/18/2011. Past Psychological History: No Psychological Hx Reported Smoking Status: Never smoker Past Alcohol Use History: Rare Past Drug Use History: None Reported - Past Family History Mother Sister(s) Family Medical History: Cancer Additional Family Medical History / Comment(s): 2 SISTERS- FEMALE CANCER AND TUMOR ON BACK. General Exam - General Exam Comments Initial Comments: PHYSICAL EXAM: General Impression: Alert and oriented x3, not in acute distress HEENT: Normocephalic atraumatic, extra-ocular movements intact, pupils equal and reactive to light bilaterally, mucous membranes moist. Cardiovascular: Heart regular rate and rhythm Chest: Able to complete full sentences, no retractions, no tachypnea Abdomen: abdomen soft, non-tender, non-distended, no organomegaly Musculoskeletal: Pulses present and equal in all extremities, no peripheral edema Motor: no focal deficits noted Neurological: CN II-XII grossly intact, no focal motor or sensory deficits noted Skin: Intact with no visualized rashes Psych: Normal affect and mood Limitations: no limitations Course Vital Signs 02/05/23 02/05/23 02/05/23 23:05 23:44 23:59 Temperature 98.7 F Pulse Rate 71 70 Pulse Rate [ 66 Java Websphere Developer ] Respiratory 22 20 Rate Blood Pressure 136/84 143/97 O2 Sat by Pulse 99 96 Oximetry 02/06/23 00:23 Temperature Pulse Rate Pulse Rate [ 67 Java Websphere Developer ] Respiratory Rate Blood Pressure O2 Sat by Pulse Oximetry EKG Findings - EKG Comments: EKG Findings:: My EKG interpretation: Ventricular rate 63, sinus rhythm,. 1 cm, QRS 110, QTc 451. No MA prolongation, no QTC prolongation, no ST or T-wave chito nges noted. Overall, this EKG is unremarkable Medical Decision Making - Medical Decision Making Was pt. sent in by a medical professional or institution (MADHU Andrea, ANTHROPOLOGY INSTRUCTOR, urgent care, hospital, or [facility]...) When possible be specific @ -No Did you speak to anyone other than the patient for history (EMS, parent, family, police, friend...)? What history was obtained from this source @ -No Did you review nursing and triage notes (agree or disagree)? Why? @ -I reviewed and agree with nursing and triage notes Were old charts reviewed (outside hosp., previous admission, EMS record, old EKG, old radiological studies, urgent care reports/EKG's, [facility] records)? Report findings @ -No old charts were reviewed Differential Diagnosis (chest pain, altered mental status, abdominal pain women, abdominal pain men, vaginal bleeding, musculoskeletal, weakness, fever, dyspnea, syncope, headache, dizziness, GI bleed, back pain, seizure, CVA, palpatations, mental health)? @ -Differential Chest Pain: Stable Angina, Unstable Angina, STEMI, NSTEMI Aortic Dissection, Pneumothorax, Musculoskeletal, Esophageal Spasm GERD, Cholecystitis, Pancreatitis, Zoster, this is not meant to be an all-inclusive list. EKG interpreted by me (3pts min.). @ -as above X-rays interpreted by me (1pt min.). @ -Chest x-ray shows no acute processes CT interpreted by me (1pt min.). @ -None done U/S interpreted by me (1pt. min.). @ -None done What testing was considered but not performed or refused? (CT, X-rays, U/S, labs)? Why? @ -None What meds were considered but not given or refused? Why? @ -None Did you discuss the management of the patient with other professionals (professionals i.e. MADHU Andrea, ANTHROPOLOGY INSTRUCTOR, lab, RT, psych nurse, social services specialist, mover helper, teacher, artillery officer, piano case maker)? Give summary @ -Case discussed with Dr. Posadas for admission Was smoking cessation discussed for >3mins.? @ -No Was critical care preformed (if so, how long)? @ -No Were there social determinants of health that impacted care today? How? (Homelessness, low income, unemployed, alcoholism, drug addiction, transpo rtation, low edu. Level, literacy, decrease access to med. care, intermediate, rehab)? @ -No Was there de-escalation of care discussed even if they declined (Discuss DNR or withdrawal of care, Hospice)? DNR status @ -No What co-morbidities impacted this encounter? (DM, HTN, Smoking, COPD, CAD, Cancer, CVA, ARF, Chemo, Hep., AIDS, mental health diagnosis, sleep apnea, morbid obesity)? @ -None Was patient admitted / discharged? Hospital course, mention meds given and route, prescriptions, significant lab abnormalities, going to OR and other pertinent info. @ -73-year-old male presents emergency department for chest pain. Vital signs upon arrival are within acceptable limits. Patient symptoms are atypical with typical features. Laboratory evaluation obtained. Troponin is 0.017. Does have elevated liver enzymes. Patient be admitted for cardiac monitoring. Undiagnosed new problem with uncertain prognosis? @ -No Drug Therapy requiring intensive monitoring for toxicity (Heparin, Nitro, Insulin, Cardizem)? @ -No Were any procedures done? @ -No Diagnosis/symptom? Acute, or Chronic, or Acute on Chronic? Uncomplicated (without systemic symptoms) or Complicated (systemic symptoms)? @ -1. Chest pain Side effects of treatment? @ -No Exacerbation, Progression, or Severe Exacerbation? @ -No Poses a threat to life or bodily function? How? (Chest pain, USA, LA, pneumonia, PE, COPD, DKA, ARF, appy, cholecystitis, CVA, Diverticulitis, Homicidal, Suicidal, threat to staff... and all critical care pts) @ -No - Lab Data Result diagrams: 02/05/23 23:48 02/05/23 23:48 Lab Results 02/05/23 02/05/23 02/05/23 Range/Units 23:48 23:48 23:48 WBC 5.9 (3.8-10.6) k/uL RBC 4.12 L (4.30-5.90) m/uL Hgb 14.5 (13.0-17.5) gm/dL Hct 43.5 (39.0-53.0) % MCV 105.7 H (80.0-100.0) fL MCH 35.1 H (25.0-35.0) pg MCHC 33.2 (31.0-37.0) g/dL RDW 13.1 (11.5-15.5) % Plt Count 119 L (150-450) k/uL MPV 8.0 Neutrophils % 62 % Lymphocytes % 23 % Monocytes % 11 % Eosinophils % 3 % Basophils % 0 % Neutrophils # 3.6 (1.3-7.7) k/uL Lymphocytes # 1.3 (1.0-4.8) k/uL Monocytes # 0.6 (0-1.0) k/uL Eosinophils # 0.2 (0-0.7) k/uL Basophils # 0.0 (0-0.2) k/uL Macrocytosis Slight PT 14.9 H (9.0-12.0) sec INR 1.5 H (<1.2) APTT 29.6 (22.0-30.0) sec Sodium 137 (137-145) mmol/L Potassium 4.0 (3.5-5.1) mmol/L Chloride 110 H (98-107) mmol/L Carbon Dioxide 22 (22-30) mmol/L Anion Gap 5 mmol/L BUN 12 (9-20) mg/dL Creatinine 0.67 (0.66-1.25) mg/dL Est GFR (CKD-EPI)AfAm >90 (>60 ml/min/1.73 sqM) Est GFR (CKD-EPI)NonAf >90 (>60 ml/min/1.73 sqM) Glucose 180 H (74-99) mg/dL Calcium 8.0 L (8.4-10.2) mg/dL Magnesium 1.8 (1.6-2.3) mg/dL Total Bilirubin 2.1 H (0.2-1.3) mg/dL AST 335 H (17-59) U/L ALT 392 H (4-49) U/L Alkaline Phosphatase 185 H (38-126) U/L Troponin I (0.000-0.034) ng/mL Total Protein 8.5 H (6.3-8.2) g/dL Albumin 3.4 L (3.5-5.0) g/dL 02/05/23 Range/Units 23:48 WBC (3.8-10.6) k/uL RBC (4.30-5.90) m/uL Hgb (13.0-17.5) gm/dL Hct (39.0-53.0) % MCV (80.0-100.0) fL MCH (25.0-35.0) pg MCHC (31.0-37.0) g/dL RDW (11.5-15.5) % Plt Count (150-450) k/uL MPV Neutrophils % % Lymphocytes % % Monocytes % % Eosinophils % % Basophils % % Neutrophils # (1.3-7.7) k/uL Lymphocytes # (1.0-4.8) k/uL Monocytes # (0-1.0) k/uL Eosinophils # (0-0.7) k/uL Basophils # (0-0.2) k/uL Macrocytosis PT (9.0-12.0) sec INR (<1.2) APTT (22.0-30.0) sec Sodium (137-145) mmol/L Potassium (3.5-5.1) mmol/L Chloride (98-107) mmol/L Carbon Dioxide (22-30) mmol/L Anion Gap mmol/L BUN (9-20) mg/dL Creatinine (0.66-1.25) mg/dL Est GFR (CKD-EPI)AfAm (>60 ml/min/1.73 sqM) Est GFR (CKD-EPI)NonAf (>60 ml/min/1.73 sqM) Glucose (74-99) mg/dL Calcium (8.4-10.2) mg/dL Magnesium (1.6-2.3) mg/dL Total Bilirubin (0.2-1.3) mg/dL AST (17-59) U/L ALT (4-49) U/L Alkaline Phosphatase (38-126) U/L Troponin I 0.017 (0.000-0.034) ng/mL Total Protein (6.3-8.2) g/dL Albumin (3.5-5.0) g/dL Disposition Clinical Impression: Chest pain Disposition: ADMITTED IP TO THIS [facility] Condition: Fair Referrals: Luiz Posadas MD [Primary Care Provider] - 1-2 days Decision Time: 02:34
[2023-02-06 00:06] LABS: Basophils % (A) 0 %; Eosinophils # (A) 0.2 k/uL (0-0.7); Eosinophils % (A) 3 %; HCT 43.5 % (39.0-53.0); HGB 14.5 gm/dL (13.0-17.5); Lymphocytes # (A) 1.3 k/uL (1.0-4.8); Lymphocytes % (A) 23 %; MCH 35.1 pg (25.0-35.0); MCHC 33.2 g/dL (31.0-37.0); MCV 105.7 fL (80.0-100.0); Macrocytosis Slight; Monocytes # (A) 0.6 k/uL (0-1.0); Monocytes % (A) 11 %; Neutrophils # (A) 3.6 k/uL (1.3-7.7); Neutrophils % (A) 62 %; Platelet Count 119 k/uL (150-450); RBC 4.12 m/uL (4.30-5.90); RDW 13.1 % (11.5-15.5); WBC 5.9 k/uL (3.8-10.6)
[2023-02-06] MEDS ORDERED: NITROGLYCERIN SL TABS 0.4 MG TAB SUBLINGUAL STA (00:07)
[2023-02-06 00:17] LABS: ALT 392 U/L (4-49); AST 335 U/L (17-59); African American GFR (CKD) >90 (>60 ml/min/1.73 sqM); Albumin 3.4 g/dL (3.5-5.0); Alkaline Phosphatase 185 U/L (38-126); Anion Gap 5 mmol/L; Blood Urea Nitrogen 12 mg/dL (9-20); Carbon Dioxide 22 mmol/L (22-30); Chloride 110 mmol/L (98-107); Glucose 180 mg/dL (74-99); Magnesium 1.8 mg/dL (1.6-2.3); Non-African American GFR(CKD) >90 (>60 ml/min/1.73 sqM); Sodium 137 mmol/L (137-145); Total Bilirubin 2.1 mg/dL (0.2-1.3); Total Protein 8.5 g/dL (6.3-8.2)
[2023-02-06 00:22] LABS: INR 1.5 (<1.2); Partial Thromboplastin Time 29.6 sec (22.0-30.0); Prothrombin Time 14.9 sec (9.0-12.0)
--- NOTE | 2023-02-06 02:04 | XR ---
EXAM: XR Chest, 2 Views CLINICAL HISTORY: ITS.REASON XR Reason: Chest Pain TECHNIQUE: Frontal and lateral views of the chest. COMPARISON: No relevant prior studies available. FINDINGS: Lungs: No consolidation or mass. Pleural space: No effusion. Heart: No cardiomegaly. Bones/joints: No acute findings. IMPRESSION: No acute cardiopulmonary process.
[2023-02-06] MEDS ORDERED: NITROGLYCERIN SL TABS 0.4 MG TAB SUBLINGUAL PRN (02:22)
[2023-02-06] MEDS ORDERED: ASPIRIN 81 MG PO STA (02:22)
--- NOTE | 2023-02-06 07:47 | US ---
EXAMINATION TYPE: US abdomen limited DATE OF EXAM: 02/06/2023 COMPARISON: CT 322 CLINICAL INDICATION: Male, 73 years old with history of epigastric pain; GB removed. TECHNIQUE: Multiple sonographic images of the right upper quadrant are obtained. FINDINGS: EXAM MEASUREMENTS: Liver Length: 13.9 cm CBD: 0.4 cm Right Kidney: 11.9 x 4.7 x 5.4 cm SOLIDWORKS MECHANICAL DESIGNER NOTES:Suboptimal due to bowel gas Pancreas: Head and tail obscured by overlying bowel gas Liver: Increased echotexture to liver, Limited visualization due to bowel gas. Scanned through ribs . Slightly heterogenous Gallbladder: Surgically absent Evidence for sonographic Garsia's sign: neg CBD: wnl Right Kidney: No hydronephrosis or masses seen IMPRESSION: 1. Limited evaluation secondary to bowel gas. No obvious acute abnormality visualized. 2. Increased echotexture to the liver suggestive of hepatic steatosis.
[2023-02-06] MEDS ORDERED: COLCHICINE 0.6 MG EACH PO ONE (09:30)
--- NOTE | 2023-02-06 11:44 | CA ---
Transthoracic Echo Report Name: Rafael Koenig Age: 73 Gender: M : 1950 Exam Date: 02/06/2023 09:58 Exam Location: [facility] Ht (in): 73 Wt (lb): 215 Ordering Physician: Nai Kumar Attending/Referring Phys: [id number], Stacy Corporate Sales Representative [facility] Procedure CPT: Indications: LV function Cardiac Hx: Technical Quality: Fair Contrast 1: Total Dose (mL): Contrast 2: Total Dose (mL): MEASUREMENTS (Male / Female) Normal Values 2D ECHO LV Diastolic Diameter PLAX 5.8 cm 4.2 - 5.9 / 3.9 - 5.3 cm LV Systolic Diameter PLAX 3.5 cm IVS Diastolic Thickness 1.1 cm 0.6 - 1.0 / 0.6 - 0.9 cm LVPW Diastolic Thickness 1.0 cm 0.6 - 1.0 / 0.6 - 0.9 cm LV Relative Wall Thickness 0.4 RV Internal Dim ED PLAX 3.0 cm LVOT Diameter 2.4 cm Aortic Root Diameter 3.2 cm LA Systolic Diameter LX 3.8 cm 3.0 - 4.0 / 2.7 - 3.8 cm LV Diastolic Volume MOD BP 71.6 cm??? 67 - 155 / 56 - 104 cm??? LV Systolic Volume MOD BP 25.9 cm??? 22 - 58 / 19 - 49 cm??? LV Ejection Fraction MOD BP 63.8 % >= 55 % LV Diastolic Volume MOD 4C 84.1 cm??? LV Systolic Volume MOD 4C 29.0 cm??? LV Ejection Fraction MOD 4C 65.5 % LV Diastolic Length 4C 7.3 cm LV Systolic Length 4C 5.9 cm LV Diastolic Volume MOD 2C 57.8 cm??? LV Systolic Volume MOD 2C 23.0 cm??? LV Ejection Fraction MOD 2C 60.2 % LV Diastolic Length 2C 6.9 cm LV Systolic Length 2C 6.0 cm LA Volume 50.9 cm??? 18 - 58 / 22 - 52 cm??? Ascending Aorta Diameter 3.7 cm DOPPLER AV Peak Velocity 139.2 cm/s AV Peak Gradient 7.7 mmHg LVOT Peak Velocity 108.6 cm/s LVOT Peak Gradient 4.7 mmHg AV Area Cont Eq pk 3.5 cm??? MV Peak Velocity 83.9 cm/s MV Peak Gradient 2.8 mmHg MV Mean Velocity 46.1 cm/s MV Mean Gradient 1.0 mmHg MV Velocity Time Integral 40.2 cm Mitral E Point Velocity 70.7 cm/s Mitral A Point Velocity 81.5 cm/s Mitral E to A Ratio 0.9 MV Deceleration Time 286.2 ms MV E' Velocity 8.5 cm/s Mitral E to MV E' Ratio 8.3 TR Peak Velocity 183.7 cm/s TR Peak Gradient 13.5 mmHg Right Ventricular Systolic Press 18.9 mmHg FINDINGS Left Ventricle Normal LV size and wall thickness. Left ventricular ejection fraction is estimated at 55-60 %. Right Ventricle Normal right ventricular size. Right Atrium Normal right atrial size. Left Atrium Normal left atrial size. Mitral Valve Structurally normal mitral valve. Trace MR. Aortic Valve Trileaflet aortic valve. No aortic valve stenosis or regurgitation. Tricuspid Valve Structurally normal tricuspid valve. Trace TR. Pulmonic Valve Structurally normal pulmonic valve. No pulmonic regurgitation. Pericardium Normal pericardium. Aorta Normal size aortic root and proximal ascending aorta. CONCLUSIONS Normal LV size and systolic function Structurally normal valves Prominent posterior pericardium especially at the base of the left ventricle and the atria, particularly left atrium No pericardial effusion Previewed by: Dr. Mathew Alejandra MD (Electronically Signed) Final Date: 06 February 2023 11:43
--- NOTE | 2023-02-06 12:27 | P.CRDCN ---
History of Present Illness History of present illness: HISTORY OF PRESENT ILLNESS: This is a 73-year-old male with a past medical history significant for hypertension and hyperlipidemia. Patient does not follow with a program consultant. We have been asked to see the patient in consultation for chest pain. Patient examined at the bedside. Patient states he started having issues a few months ago. He reports having a viral illness at that time. He states since that time he has been feeling short of breath with exertion. He reports having a cough as well. He reports chest pain that is worse with deep inspiration. The patient states if he lays down in bed the pain is worse and if he is sitting up the pain gets better. The patient states he has a outpatient stress test scheduled for February 24 that was ordered by his primary care physician. The patient was found to have numerous abnormalities in his labs including elevated INR, bilirubin, AST, ALT, alkaline phosphatase, and lipase. The patient states he just had his annual physical with Dr. Posadas and he has been addressing these issues on an outpatient basis. * EKG reveals sinus mechanism with incomplete right bundle branch block. No signs of acute ischemia * Chest xray negative for acute process * Laboratory data: WBC 5.9. Hemoglobin 14.5. Platelet count 119. Sodium 137. Potassium 4.0. BUN 12. Creatinine 0.67. Troponin negative 3. * Current home cardiac medications include amlodipine 5 mg daily, and Lipitor 20 mg at night * Echocardiogram completed revealing normal LV size and systolic function, structurally normal valves, prominent posterior pericardium especially at the base of the left ventricle in the atria, particularly left atrium. No pericardial effusion. REVIEW OF SYSTEMS: At the time of my exam: CONSTITUTIONAL: Denies fever or chills. HEENT: Denies blurred vision, vision changes, or eye pain. Denies hemoptysis CARDIOVASCULAR: Denies chest pain. Denies orthopnea. Denies PND. Denies palpitations RESPIRATORY: Denies shortness of breath. GASTROINTESTINAL: Denies abdominal pain. Denies nausea or vomiting. HEMATOLOGIC: Denies bleeding disorders. GENITOURINARY: Denies any blood in urine. SKIN: Denies pruitis. Denies rash. PHYSICAL EXAM: VITAL SIGNS: Reviewed. GENERAL: Well-developed in no acute distress. HEENT: Head is normocephalic. Pupils are equal, round. Sclerae anicteric. Mucous membranes of the mouth are moist. Neck supple. No JVD or thyromegaly LUNGS: Respirations even and unlabored. Lungs essentially clear to auscultation bilaterally. HEART: Regular rate and rhythm. S1 and S2 heard. Soft systolic murmur ABDOMEN: Soft. Nondistended. Nontender. EXTREMITIES: Normal range of motion. No clubbing or cyanosis. Peripheral pulses intact. No lower extremity edema NEUROLOGIC: Awake and alert. Oriented x 3. ASSESSMENT: Chest pain, possible pericarditis Hypertension Hyperlipidemia Abnormal LFTs PLAN: An acute coronary has been ruled out Resume home cardiac medications 2-D echo obtained and reviewed Trial a dose of colchicine 1.2 mg 1. If this improves his chest pain, recommend 0.6 mg twice a day for 2 weeks Stable for discharge from a cardiac standpoint We will sign off. Please reconsult if needed. Nurse practitioner note has been reviewed by physician. Signing provider agrees with the documented findings, assessment, and plan of care. 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 History of Any Multi-Drug Resistant Organisms: None Reported Past Surgical History: Back Surgery, Cholecystectomy, Tonsillectomy Additional Past Surgical History / Comment(s): COLONOSCOPY /EGD Past Anesthesia/Blood Transfusion Reactions: Previous Problems w/ Anesthesia Additional Past Anesthesia/Blood Transfusion Reaction / Comment(s): PREVIOUS DIFFICULT INTUBATION - LETTER FROM ANESTHESIA ON CHART-STATES GLIDESCOPE WAS USED. -THIS WAS WITH SURGERY FOR LUMBAR DISCECTOMY 12/18/2011. Past Psychological History: No Psychological Hx Reported Smoking Status: Never smoker Past Alcohol Use History: Rare Past Drug Use History: None Reported - Past Family History Mother Sister(s) Family Medical History: Cancer Additional Family Medical History / Comment(s): 2 SISTERS- FEMALE CANCER AND TUMOR ON BACK. Medications and Allergies Home Medications Medication Instructions Recorded Confirmed Type Atorvastatin [Lipitor] 20 mg PO HS 09/16/19 02/06/23 History Dicyclomine [Bentyl] 10 mg PO DAILY 09/16/19 02/06/23 History Omeprazole [PriLOSEC] 40 mg PO DAILY 09/16/19 02/06/23 History amLODIPine [Norvasc] 5 mg PO DAILY 09/16/19 02/06/23 History metroNIDAZOLE [metroNIDAZOLE 0.75% 1 applic TOPICAL DAILY 03/05/22 02/06/23 History Gel] Allergies Allergy/AdvReac Type Severity Reaction Status Date / Time Penicillins AdvReac Abdominal Verified 02/06/23 08:57 Pain sulfamethoxazole AdvReac Abdominal Verified 02/06/23 08:57 [From Bactrim] Pain trimethoprim [From Bactrim] AdvReac Abdominal Verified 02/06/23 08:57 Pain Physical Exam Vitals: Vital Signs Temp Pulse Pulse Resp BP Pulse Ox 02/06/23 07:59 53 L 19 135/87 98 02/06/23 04:00 65 16 131/88 96 02/06/23 03:00 60 16 128/85 97 02/06/23 00:23 67 02/05/23 23:59 70 20 143/97 96 02/05/23 23:44 66 02/05/23 23:05 98.7 F 71 22 136/84 99 Intake and Output 02/05/23 02/06/23 02/06/23 22:59 06:59 14:59 Other: Weight 97.522 kg Results 02/05/23 23:48 02/05/23 23:48 Cardiac Enzymes 02/05/23 02/05/23 02/06/23 Range/Units 23:48 23:48 02:50 AST 335 H (17-59) U/L Troponin I 0.017 0.030 (0.000-0.034) ng/mL 02/06/23 Range/Units 06:17 AST (17-59) U/L Troponin I <0.012 (0.000-0.034) ng/mL Coagulation 02/05/23 Range/Units 23:48 PT 14.9 H (9.0-12.0) sec APTT 29.6 (22.0-30.0) sec CBC 02/05/23 Range/Units 23:48 WBC 5.9 (3.8-10.6) k/uL RBC 4.12 L (4.30-5.90) m/uL Hgb 14.5 (13.0-17.5) gm/dL Hct 43.5 (39.0-53.0) % Plt Count 119 L (150-450) k/uL Comprehensive Metabolic Panel 02/05/23 Range/Units 23:48 Sodium 137 (137-145) mmol/L Potassium 4.0 (3.5-5.1) mmol/L Chloride 110 H (98-107) mmol/L Carbon Dioxide 22 (22-30) mmol/L BUN 12 (9-20) mg/dL Creatinine 0.67 (0.66-1.25) mg/dL Glucose 180 H (74-99) mg/dL Calcium 8.0 L (8.4-10.2) mg/dL AST 335 H (17-59) U/L ALT 392 H (4-49) U/L Alkaline Phosphatase 185 H (38-126) U/L Total Protein 8.5 H (6.3-8.2) g/dL Albumin 3.4 L (3.5-5.0) g/dL Current Medications Generic Name Dose Route Start Last Admin Trade Name Freq PRN Reason Stop Dose Admin Nitroglycerin 0.4 mg 02/06/23 02:22 Nitroglycerin Sl Tabs 0.4 Mg Tab SUBLINGUAL Q5M PRN Chest Pain Intake and Output 02/05/23 02/06/23 02/06/23 22:59 06:59 14:59 Other: Weight 97.522 kg 02/05/23 23:48 02/05/23 23:48
[2023-02-06] MEDS: DICYCLOMINE 10 MG CAP PO SCH (17:05)
[2023-02-06] MEDS: PANTOPRAZOLE 40 MG TABLET PO SCH (17:05)
[2023-02-06] MEDS: amLODIPine 5 MG TAB PO SCH (17:05)
[2023-02-06 17:35] LABS: Basophils % (A) 0 %; Eosinophils # (A) 0.2 k/uL (0-0.7); Eosinophils % (A) 3 %; HCT 48.4 % (39.0-53.0); HGB 15.5 gm/dL (13.0-17.5); Lymphocytes # (A) 1.9 k/uL (1.0-4.8); Lymphocytes % (A) 31 %; MCH 34.3 pg (25.0-35.0); Macrocytosis Moderate; Mean Platelet Volume 7.7; Monocytes # (A) 0.7 k/uL (0-1.0); Monocytes % (A) 11 %; Neutrophils # (A) 3.2 k/uL (1.3-7.7); Neutrophils % (A) 52 %; Platelet Count 135 k/uL (150-450); RBC 4.53 m/uL (4.30-5.90); WBC 6.2 k/uL (3.8-10.6)
[2023-02-06 18:23] LABS: ALT 447 U/L (4-49); AST 349 U/L (17-59); African American GFR (CKD) >90 (>60 ml/min/1.73 sqM); Albumin 3.6 g/dL (3.5-5.0); Albumin/Globulin Ratio 0.6; Alkaline Phosphatase 163 U/L (38-126); Amylase 56 U/L (30-110); Anion Gap 6 mmol/L; Blood Urea Nitrogen 10 mg/dL (9-20); Calcium 8.4 mg/dL (8.4-10.2); Carbon Dioxide 27 mmol/L (22-30); Chloride 108 mmol/L (98-107); Globulin 5.6 g/dL; Glucose 92 mg/dL (74-99); LDH 275 U/L (120-246); Lipase 318 U/L (23-300); Non-African American GFR(CKD) >90 (>60 ml/min/1.73 sqM); Potassium 4.2 mmol/L (3.5-5.1); Sodium 141 mmol/L (137-145); Total Bilirubin 2.9 mg/dL (0.2-1.3); Total Protein 9.2 g/dL (6.3-8.2)
[2023-02-06] MEDS ORDERED: IOPAMIDOL CONTRAST (ORAL USE) VIAL PO PRN (18:25)
[2023-02-06] MEDS ORDERED: ONDANSETRON 4 MG/2 ML VIAL IVP PRN (18:28)
[2023-02-06 18:34] LABS: Erythrocyte Sedimentation Rate 11 mm/hr (0-15)
[2023-02-06 20:44] VITALS: RESP 16
--- NOTE | 2023-02-06 20:54 | CT ---
EXAMINATION TYPE: CT chest abdomen w con CT DLP: 1250.9 mGycm, Automated exposure control for dose reduction was used. DATE OF EXAM: 02/06/2023 7:27 PM COMPARISON: None. CLINICAL INDICATION:Male, 73 years old with history of Abdominal pain; PHH, Chest and abdomen pain. S OB. Technique: Multiple axial images of the chest, abdomen were obtained. Two-dimensional coronal and sag ittal reconstructions were obtained. Contrast used:100 ml mL of Isovue 300 with IV Contrast, Oral contrast used: with Oral Contrast Findings: CHEST: LUNGS/ PLEURA: No evidence of focal consolidation, pneumothorax or pleural effusion. Some streaky ate lectasis seen within the left lung base. AIRWAY: Patent and unremarkable. HEART: Size within normal limits. MEDIASTINUM: No gross evidence of adenopathy. VASCULATURE: No aortic aneurysm. MUSCULOSKELETAL: Mild disc degeneration changes are present throughout the thoracolumbar spine. SOFT TISSUES/LYMPH NODES: Unremarkable. LOWER NECK: No significant findings. ABDOMEN: ABDOMEN LIVER: Unremarkable GALLBLADDER AND BILE DUCTS: The gallbladder surgically absent. PANCREAS: Unremarkable. SPLEEN: Unremarkable. ADRENAL GLANDS: Unremarkable. KIDNEYS AND URETERS: No evidence of hydronephrosis or renal calculus. The ureters are unremarkable. STOMACH AND BOWEL: No evidence of bowel obstruction. PERITONEUM: No evidence of pneumoperitoneum or free fluid. VASCULATURE: Mild atherosclerotic calcifications are present throughout the abdominal aorta and its b ranches. MUSCULOSKELETAL: No acute osseous abnormalities. Moderate disc degeneration changes are present throu ghout the thoracolumbar spine. LYMPH NODES: No gross evidence for lymphadenopathy. SOFT TISSUE/ABDOMINAL WALL: Unremarkable IMPRESSION: No evidence for acute abdominal or thoracic process to explain the patient's pain or shortness of blas ath.
[2023-02-06] MEDS: COLCHICINE 0.6 MG EACH PO SCH (20:59)
[2023-02-06] MEDS ORDERED: ATORVASTATIN 20 MG TAB PO SCH (21:00)
[2023-02-07] MEDS: PANTOPRAZOLE 40 MG TABLET PO SCH (06:15)
--- NOTE | 2023-02-07 06:53 | P.HPIM ---
History of Present Illness H&P Date: 02/06/23 Chief Complaint: chest pain this is a history of physical and discharge summary. HISTORY OF PRESENT ILLNESS: This is a 73-year-old male with a previous medical history significant for hypertension and hypertensive cardio vascular disease, hyperlipidemia, enlarged prostate, history of nonalcoholic fatty liver disease, irritable bowel syndrome with constipation, history of GERD with esophagitis, patient was seen in my office on 02/04/2023 for annual wellness visit and he has been complaining of increased mid epigastric abdominal pain/chest pain associated with a dry cough especially with deep inspiration not able to eat or drink much, patient was scheduled to go for a computed tomography scan of the chest and abdomen with contrast along with a stress test as an outpatient, since his EKG in the office which will evidence of sinus rhythm with right bundle branch block and nonspecific T-wave changes, along with ultrasound of the carotid as part of the screening for underlying atherosclerosis However the patient stated that he was doing fine up until the day before yesterday when he went and had dinner with his he had a burger he believed was a greasy burger on his way back home he developed to have a significant mid epigastric/chest pain associated with dry heaves and the some vomiting so he ended up coming to the emergency department at [facility] for evaluation as well as EKG showed a normal sinus rhythm and incomplete right bundle branch block nonspecific T-wave changes, he was seen in consultation by cardiology with other the patient is daily with pericarditis, however patient underwent echocardiogram did not show evidence of acute of normalities, EKG did not show any evidence of pericarditis patient did receive colchicine in the ER and he felt a lot better than before he was placed on course disease recurrence 6 mg orally twice every day per the recommendations of cardiology who is cleared by cage maker machine for discharge home the patient continued to have significant midepigastric pain associated with elevated lip ase elevated liver function tests including bilirubin Hastie ALT and alkaline phosphatase, rigid the possibility of common bile duct stone or a lesion at the sphincter of Oddi therefore the patient was admitted to the hospital and GI consultation was obtained along with obtaining a computed tomography scan of the chest and abdomen with contrast. REVIEW OF SYSTEMS: Constitutional: No documented fever, no chills, no night sweats. No weight change. No weakness, fatigue or lethargy. No daytime sleepiness. HEENT: No headache. No blurred vision or double vision, no loss of vision. No loss of Hearing, no ringing in the ears, no dizziness. No nasal drainage or congestion. No epistaxis. No sore throat. Lungs: positive for shortness of breath, dry cough, no sputum production. No wheezing. Reports dyspnea with activity. Cardiovascular: No chest pain, no lower extremity edema. No palpitations. No paroxysmal nocturnal dyspnea. No orthopnea. No lightheadedness or dizziness. No syncopal episodes. Abdominal: Reports abdominal pain. positive for nausea, vomiting. No diarrhea. positive for constipation. No bloody or tarry stools reports loss of appetite. Genitourinary: No dysuria, increased frequency, urgency. No urinary retention. Musculoskeletal: No myalgias. No muscle weakness, no gait dysfunction, no frequent falls. No back pain. No neck pain. Integumentary: No wounds, no lesions. No rash or pruritus. No unusual bruising. No change in hair or nails. Neurologic: No aphasia. No facial droop. No change in mentation. No head injury. No headache. No paralysis. No paresthesia. Psychiatric: No depression. No anxiety. No mood swings. Endocrine: No abnormal blood sugars. No weight change. PAST MEDICAL HISTORY: Hypertension and hypertensive cardio vascular disease. Hyperlipidemia. Irritable bowel syndrome with constipation. Enlarged prostate. GERD with esophagitis. PAST SURGICAL HISTORY: Lumbar discectomy 2008 Cholecystectomy Colonoscopy 2020 Lithotripsy January 2022. SOCIAL HISTORY: Patient denies any history of smoking, he rarely drinks alcohol, he denies any drug use or abuse he lives with his FAMILY HISTORY: Father at the age of 76 from congestive heart failure. History of Alzheimer dementia as well as Parkinson's disease, mother at age of 80 from congestive heart failure and she had a history of coronary artery disease post CABG. Patient had 4 brothers one killed in a motorcycle accident the others are okay, patient had 3 sisters one of them at age of 57 patient has from cancer in the spine okay. Patient has 2 sons and 1 daughter no major medical problems. PHYSICAL EXAMINATION: General: 73-year-old male sitting up in a chair with mid epigastric abdominal pain. HEENT: Head is atraumatic, normocephalic, pupils were equal round reactive to light and recommendation, extraocular muscle movement were intact, sclera nonicteric, conjunctivae were pale, mucous membranes of the mouth are somewhat dry. Neck: Supple, no JVP, normal carotid upstroke bilaterally, no lymphadenopathy. Chest: Decreased breath sounds at the bases, few rhonchi, no expiratory wheezes, no chest wall tenderness, no intercostal retractions. Heart: First heart sound is normal, second heart sounds normal there is SONYA 2/6 located at the left sternal border. Abdomen: Soft, midepigastric tenderness no rebound or guarding positive bowel sounds Extremities: There is no edema no calf tenderness DP +2 bilaterally. Neurologic examination: Patient is awake alert and oriented X3, cranial nerves II-12 appear grossly intact, muscle power were 5 out of 5 in upper extremities and 5 out of 5 in bilateral lower extremities, deep tendon reflexes normal bilaterally. ASSESSMENT AND PLAN: 1. Chest pain none cardiac possible pericarditis which I doubt. Echocardiogram and EKG were reviewed cyst patient has some relief with the colchicine we will continue with colchicine 0.6 mg po bid 2. Acute pancreatitis with elevated liver function tests rule out common bile duct stone choledocholithiasis. Continue IV fluid resuscitation, continue current pain management, continue Zofran 4 mg IV push every 6 hours as needed, GI consultation, computed tomography scan of the chest and abdomen patient will likely need to go for an ERCP . 3. Hypertension and hypertensive cardiovascular disease. Continue patient on amlodipine 5 mg orally once every day. 4. Hyperlipidemia. Discontinue atorvastatin due to his pancreatitis. 5. Irritable bowel syndrome with cost patient continue dicyclomine as needed. 6. GERD with esophagitis. Continue patient on Protonix 40 mg once every day. 7. DVT prophylaxis. Lovenox 40 mg subcutaneously every 24 hours. 8. GI prophylaxis Continue patient on Protonix 40 mg once every day. 9. Admit to inpatient. Estimate a length of stay 2 midnights 10. Full code. 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 History of Any Multi-Drug Resistant Organisms: None Reported Past Surgical History: Back Surgery, Cholecystectomy, Tonsillectomy Additional Past Surgical History / Comment(s): COLONOSCOPY /EGD Past Anesthesia/Blood Transfusion Reactions: Previous Problems w/ Anesthesia Additional Past Anesthesia/Blood Transfusion Reaction / Comment(s): PREVIOUS DIFFICULT INTUBATION - LETTER FROM ANESTHESIA ON CHART-STATES GLIDESCOPE WAS USED. -THIS WAS WITH SURGERY FOR LUMBAR DISCECTOMY 12/18/2011. Past Psychological History: No Psychological Hx Reported Smoking Status: Never smoker Past Alcohol Use History: Rare Past Drug Use History: None Reported - Past Family History Mother Sister(s) Family Medical History: Cancer Additional Family Medical History / Comment(s): 2 SISTERS- FEMALE CANCER AND TUMOR ON BACK. Medications and Allergies Home Medications Medication Instructions Recorded Confirmed Type Atorvastatin [Lipitor] 20 mg PO HS 09/16/19 02/06/23 History Dicyclomine [Bentyl] 10 mg PO DAILY 09/16/19 02/06/23 History Omeprazole [PriLOSEC] 40 mg PO DAILY 09/16/19 02/06/23 History amLODIPine [Norvasc] 5 mg PO DAILY 09/16/19 02/06/23 History metroNIDAZOLE [metroNIDAZOLE 0.75% 1 applic TOPICAL DAILY 03/05/22 02/06/23 History Gel] Allergies Allergy/AdvReac Type Severity Reaction Status Date / Time Penicillins AdvReac Abdominal Verified 02/06/23 08:57 Pain sulfamethoxazole AdvReac Abdominal Verified 02/06/23 08:57 [From Bactrim] Pain trimethoprim [From Bactrim] AdvReac Abdominal Verified 02/06/23 08:57 Pain Physical Exam Vitals: Vital Signs Temp Pulse Pulse Resp BP Pulse Ox 02/06/23 13:58 98.0 F 59 L 16 139/91 99 02/06/23 11:20 56 L 19 126/83 97 02/06/23 07:59 53 L 19 135/87 98 02/06/23 04:00 65 16 131/88 96 02/06/23 03:00 60 16 128/85 97 02/06/23 00:23 67 02/05/23 23:59 70 20 143/97 96 02/05/23 23:44 66 02/05/23 23:05 98.7 F 71 22 136/84 99 Intake and Output 02/06/23 02/06/23 02/06/23 06:59 14:59 22:59 Other: Weight 97.522 kg Results CBC & Chem 7: 02/06/23 17:07 02/06/23 17:07 Labs: Abnormal Lab Results - Last 24 Hours (Table) 02/05/23 02/05/23 02/05/23 Range/Units 23:48 23:48 23:48 RBC 4.12 L (4.30-5.90) m/uL MCV 105.7 H (80.0-100.0) fL MCH 35.1 H (25.0-35.0) pg Plt Count 119 L (150-450) k/uL PT 14.9 H (9.0-12.0) sec INR 1.5 H (<1.2) Chloride 110 H (98-107) mmol/L Glucose 180 H (74-99) mg/dL Calcium 8.0 L (8.4-10.2) mg/dL Total Bilirubin 2.1 H (0.2-1.3) mg/dL AST 335 H (17-59) U/L ALT 392 H (4-49) U/L Alkaline Phosphatase 185 H (38-126) U/L Total Protein 8.5 H (6.3-8.2) g/dL Albumin 3.4 L (3.5-5.0) g/dL Lipase (23-300) U/L 02/05/23 Range/Units 23:48 RBC (4.30-5.90) m/uL MCV (80.0-100.0) fL MCH (25.0-35.0) pg Plt Count (150-450) k/uL PT (9.0-12.0) sec INR (<1.2) Chloride (98-107) mmol/L Glucose (74-99) mg/dL Calcium (8.4-10.2) mg/dL Total Bilirubin (0.2-1.3) mg/dL AST (17-59) U/L ALT (4-49) U/L Alkaline Phosphatase (38-126) U/L Total Protein (6.3-8.2) g/dL Albumin (3.5-5.0) g/dL Lipase 480 H (23-300) U/L
[2023-02-07 08:31] VITALS: BP 135/78; PULSE 56; TEMP 97.4
[2023-02-07] MEDS: DICYCLOMINE 10 MG CAP PO SCH (08:32)
[2023-02-07] MEDS: amLODIPine 5 MG TAB PO SCH (08:32)
[2023-02-07] MEDS: COLCHICINE 0.6 MG EACH PO SCH (08:32)
[2023-02-07] MEDS ORDERED: ENOXAPARIN 40 MG/0.4 ML SYRINGE SQ SCH (09:00)
[2023-02-07] MEDS ORDERED: ASPIRIN 325 MG TAB PO SCH (09:00)
[2023-02-07 09:09] LABS: Basophils # (A) 0.05 X 10*3/uL (0.00-0.10); Basophils % (A) 0.9 %; Eosinophils # (A) 0.24 X 10*3/uL (0.04-0.35); Eosinophils % (A) 4.5 %; HCT 42.5 % (39.6-50.0); HGB 14.4 d/dL (12.0-15.0); Lymphocytes # (A) 2.01 X 10*3/uL (0.90-5.00); Lymphocytes % (A) 37.6 %; MCHC 33.9 d/dL (32.0-37.0); MCV 103.2 FL (80.0-97.0); Mean Platelet Volume 10.4 FL (9.5-12.2); NRBC Per 100 WBC 0 X 10*3/uL (0.00-0.01); Neutrophils # (A) 2.24 X 10*3/uL (1.80-7.70); Neutrophils % (A) 41.8 %; Platelet Count 121 X 10*3/uL (140-440); RBC 4.12 X 10*6/uL (4.40-5.60); RDW 13.7 % (11.5-14.5); WBC 5.35 X 10*3/uL (4.50-10.00)
[2023-02-07 09:20] LABS: Chol/HDL Ratio 2.18 Ratio; LDL Cholesterol,Calculated 27.8 mg/dL (0.0-131.0); VLDL Calculation 11.74 mg/dL (5.00-40.00)
[2023-02-07 09:57] LABS: ALT 365 U/L (10-49); AST 231 U/L (14-35); Albumin/Globulin Ratio 0.65 Ratio (1.60-3.17); Alkaline Phosphatase 124 U/L (41-126); BUN/Creat Ratio 12.38 Ratio (12.00-20.00); Blood Urea Nitrogen 9.9 mg/dL (9.0-27.0); Calcium 8.2 mg/dL (8.7-10.3); Carbon Dioxide 24.4 mmol/L (21.6-31.8); Chloride 107 mmol/L (96-109); Globulin 4.6 d/dL (1.6-3.3); Glucose 83 mg/dL (70-110); Potassium 4.1 mmol/L (3.5-5.5); Sodium 138 mmol/L (135-145); Total Bilirubin 2.7 mg/dL (0.3-1.2); Total Protein 7.6 d/dL (6.2-8.2)
--- NOTE | 2023-02-09 14:49 | P.DS ---
Providers Date of admission: 02/06/23 02:22 Expected date of discharge: 02/07/23 Attending physician: Luiz Posadas Consults: 02/06/23 18:27 Consult Physician Routine Consulting Provider: Mireya Bo Consult Reason/Comments: Elevated LFTs Do you want consulting provider notified?: Yes Primary care physician: Luiz Posadas Hospital Course: Final diagnosis 1. Chest pain none cardiac possible pericarditis, ruled out. ACS was ruled out. 2. Acute pancreatitis with elevated liver function tests rule out common bile duct stone choledocholithiasis. 3. Hypertension and hypertensive cardiovascular disease. 4. Hyperlipidemia. 5. Irritable bowel syndrome 6. GERD with esophagitis. 7. DVT prophylaxis. 8. GI prophylaxis 9. Full code. Discharge disposition Patient is being discharged in a stable condition with guarded prognosis to home . Patient will follow-up with Dr. Posadas in the outpatient setting upon discharge. Patient is to continue with medications as prescribed and close outpatient follow-up with cardiology as scheduled. Patient was provided resources to follow-up with GI in the outpatient setting. Total time taken is greater than 35 minutes. Hospital course This is a 73-year-old male who was recently admitted with chest pain, ruled out ACS with concerns of possible pericarditis. Cardiology evaluated the patient with a 2-D echo performed with no signs of keratitis. Patient was started on colchicine and will continue 0.6 mg twice daily for the next 2 weeks and recommended outpatient follow-up. Patient does have an outpatient stress test scheduled and was instructed to keep this appointment. Patient with some elevated liver functions that are trending down and provided a prescription for discharge to follow-up with repeat labs on Thursday. Patient needs GI consultation all there is no GI services available this weekend or next week and have provided resources for patient to follow-up with Dr. Bo in the outpatient setting this week. Patient also instructed to discuss with primary care provider this week and follow-up in the next 1-2 days in the office this patient may possibly need ERCP or MRCP. Patient reports no abdominal pain and tolerating diet denies any nausea or vomiting and would like to go home. Cardiology has cleared the patient for outpatient follow-up. Patient reports along with his at the bedside he will follow-up with primary care provider as well as GI in the outpatient setting. Please refer to other consultation notes for further HPI. Currently no reports of chest pain, shortness of breath, or palpitations. Patient is afebrile. No reports of nausea or vomiting and patient is tolerating diet. Patient will be discharged home today. Guarded prognosis. Physical exam: Gen: This is a 73-year-old male who is awake, alert and oriented 3, well- developed, well-nourished HEENT: Head is atraumatic, normocephalic. Pupils equal, round. Sclerae is anicteric. NECK: Supple. No JVD. No lymphadenopathy. No thyromegaly. LUNGS: Clear to auscultation. No wheezes or rhonchi. No intercostal retractions. HEART: Regular rate and rhythm. No murmur. ABDOMEN: Soft. Bowel sounds are present. No masses. No tenderness. EXTREMITIES: No pedal edema. No calf tenderness. NEUROLOGICAL: Patient is awake, alert and oriented x3. Cranial nerves 2 through 12 are grossly intact. Please refer to medication reconciliation sheet for a list of medications. The impression and plan of care has been dictated by Joanne Flanagan, Nurse Practitioner as directed. Dr. Monisha MD I have performed a history and examination and MDM of this patient, discussed the same with the dictator, and agree with the dictator's assessment and plan as written ,documented as a scribe. Based on total visit time, I have performed more than 50% of the visit. Patient Condition at Discharge: Fair Plan - Discharge Summary New Discharge Prescriptions: New Colchicine [Colcrys] 0.6 mg PO BID 14 Days #28 each Continue Atorvastatin [Lipitor] 20 mg PO HS Dicyclomine [Bentyl] 10 mg PO DAILY amLODIPine [Norvasc] 5 mg PO DAILY Omeprazole [PriLOSEC] 40 mg PO DAILY metroNIDAZOLE [metroNIDAZOLE 0.75% Gel] 1 applic TOPICAL DAILY Discharge Medication List Atorvastatin [Lipitor] 20 mg PO HS 09/16/19 [History] Dicyclomine [Bentyl] 10 mg PO DAILY 09/16/19 [History] Omeprazole [PriLOSEC] 40 mg PO DAILY 09/16/19 [History] amLODIPine [Norvasc] 5 mg PO DAILY 09/16/19 [History] metroNIDAZOLE [metroNIDAZOLE 0.75% Gel] 1 applic TOPICAL DAILY 03/05/22 [History] Colchicine [Colcrys] 0.6 mg PO BID 14 Days #28 each 02/07/23 [Rx] Follow up Appointment(s)/Referral(s): Mathew Alejandra MD [STAFF PHYSICIAN] - 4 Weeks Luiz Posadas MD [Primary Care Provider] - 1-2 days Mireya Bo MD [STAFF PHYSICIAN] - 1 Week Ambulatory/Diagnostic Orders: Comprehensive Metabolic Panel [LAB.AMB] Time Frame: 2 Days, Location: None Selected Patient Instructions/Handouts: Low Fat Diet (GEN) Activity/Diet/Wound Care/Special Instructions: Activity is limited until follow-up Follow-up with primary care provider on discharge Follow-up with cardiology at your scheduled stress test Follow-up with GI in 1-2 weeks Please obtain labs in the next 2-3 days Discharge Disposition: HOME SELF-CARE
== END 2023-02-07 14:52 | disposition home or self-care (01) | DRG 314 ==
LOC: EC 23:02 → 6NMEDSUR 02-06 02:22 → UNDOADMOB 02-06 02:22 → 6NMEDSUR 02-06 02:22 → EC 02-06 20:18 → UNDODISOB 02-07 14:52
PROVIDERS: ADMIT Emergency Medicine; ATTEND Emergency Medicine
DX: I31.9 Disease of pericardium, unspecified (principal); K85.90 Acute pancreatitis without necrosis or infection, unspecified; I11.9 Hypertensive heart disease without heart failure; K76.0 Fatty (change of) liver, not elsewhere classified; E78.5 Hyperlipidemia, unspecified; K21.00 Gastro-esophageal reflux disease with esophagitis, without bleeding; N40.0 Benign prostatic hyperplasia without lower urinary tract symptoms; K58.1 Irritable bowel syndrome with constipation; I45.10 Unspecified right bundle-branch block; Z77.090 Contact with and (suspected) exposure to asbestos; Z85.828 Personal history of other malignant neoplasm of skin; Z86.11 Personal history of tuberculosis; Z87.440 Personal history of urinary (tract) infections; Z86.19 Personal history of other infectious and parasitic diseases; Z88.0 Allergy status to penicillin; Z88.2 Allergy status to sulfonamides
CPT/HCPCS: 36415; 71046; 71260; 74160; 76705; 80053; 80061; 82150; 83615; 83690; 83735; 84484; 85025; 85610; 85652; 85730; 93005; 93306; 99285

== ENCOUNTER → 2023-02-05 | Outpatient (CLI) | payer MEDICARE ==
--- NOTE | 2023-02-06 07:41 | US ---
EXAMINATION TYPE: US carotid duplex BILAT DATE OF EXAM: 02/05/2023 COMPARISON: NONE CLINICAL INDICATION: Male, 73 years old with history of I65.23 OCCLUSION AND STENOSIS OF BILATERAL CA ROTID ARTERIES; HTN controlled with meds. TECHNIQUE: Carotid duplex ultrasound examination. Indirect Doppler criteria was utilized. FINDINGS: EXAM MEASUREMENTS: RIGHT: Peak Systolic Velocity (PSV) cm/sec ----- Right CCA: 76.1 ----- Right ICA: 100.0 ----- Right ECA: 123.0 ICA/CCA ratio: 1.3 RIGHT: End Diastole cm/sec ----- Right CCA: 17.0 ----- Right ICA: 19.0 ----- Right ECA: 24.5 LEFT: Peak Systolic Velocity (PSV) cm/sec ----- Left CCA: 72.6 ----- Left ICA: 54.9 ----- Left ECA: 99.0 ICA/CCA ratio: 0.8 LEFT: End Diastole cm/sec ----- Left CCA: 16.7 ----- Left ICA: 18.0 ----- Left ECA: 15.6 VERTEBRALS (direction of flow): Right Vertebral: Antegrade Left Vertebral: Antegrade Rhythm: Normal BUTCHER SCULLION NOTES: No elevated velocities or significant stenosis. Plaque in bilateral bulbs with ri ght extending into proximal ICA. IMPRESSION: Less than 50% stenosis of the bilateral carotid bifurcations. Criteria for Assigning % of Stenosis / Diameter reduction (Estimation based on the indirect measurements of the internal carotid artery velocities (ICA PSV). 1. Normal (no stenosis)=ICA PSV < 125 cm/s: ratio < 2.0: ICA EDV<40 cm/s. 2. Less than 50% stenosis=ICA PSV < 125 cm/s: ratio < 2.0: ICA EDV<40 cm/s. 3. 50 to 69% stenosis=ICA PSV of 125 to 230 cm/s: ration 2.0 ? 4.0: ICA EDV 40-100 cm/s. 4. Greater than 70% stenosis to near occlusion= ICA PSV > 230 cm/s: ratio > 4.0: ICA EDV > 100 cm/s. 5. Near occlusion= ICA PSV velocities may be low or undetectable: variable ratio and ICA EDV. 6. Total occlusion=unable to detect flow.
== END | disposition home or self-care (01) ==
LOC: RADUSWWP 16:12
PROVIDERS: ATTEND Internal Medicine
DX: I65.23 Occlusion and stenosis of bilateral carotid arteries (principal); I25.119 Atherosclerotic heart disease of native coronary artery with unspecified angina pectoris; R05.3 Chronic cough; K75.9 Inflammatory liver disease, unspecified
CPT/HCPCS: 93880

== ENCOUNTER → 2023-02-09 | Outpatient (CLI) | payer MEDICARE ==
[2023-02-10 04:27] LABS: ALT 392 U/L (10-49); AST 229 U/L (14-35); Albumin 3.4 d/dL (3.8-4.9); Albumin/Globulin Ratio 0.67 Ratio (1.60-3.17); Alkaline Phosphatase 131 U/L (41-126); Blood Urea Nitrogen 16.8 mg/dL (9.0-27.0); Carbon Dioxide 25.1 mmol/L (21.6-31.8); Chloride 106 mmol/L (96-109); Globulin 5.1 d/dL (1.6-3.3); Glucose 89 mg/dL (70-110); Sodium 140 mmol/L (135-145); Total Bilirubin 3.2 mg/dL (0.3-1.2); Total Protein 8.5 d/dL (6.2-8.2)
== END | disposition home or self-care (01) ==
LOC: LABWHC1 15:39
PROVIDERS: ATTEND Registered Nurse
DX: R79.89 Other specified abnormal findings of blood chemistry (principal)
CPT/HCPCS: 36415; 80053

== ENCOUNTER → 2023-08-05 | Outpatient (CLI) | payer MEDICARE ==
--- NOTE | 2023-08-08 11:14 | NM ---
EXAMINATION TYPE: NM DatScan Brain SPECT DATE OF EXAM: 08/05/2023 COMPARISON: NONE CLINICAL INDICATION: Male, 73 years old with history of R25.1 Tremor; TECHNIQUE: 10 drops of Lugol's solution was administered 1 hour prior to injection as a thyroid bloc kasi agent. After the administration of 4.86 mCi I-123 Ioflupane DaTscan. Images obtained 3 hours p ost injection. SPECT images of the brain were acquired with axial and coronal reconstructions. FINDINGS: Bilateral symmetrical activity within the corpora striata. No significant abnormal increased backgrou nd activity. IMPRESSION: Findings are against a diagnosis of Parkinson's disease or a Parkinsonian syndrome. It may be seen in normal individuals or those with essential tremor.
== END | disposition home or self-care (01) ==
LOC: RADNMMAIN 09:41
PROVIDERS: ATTEND Internal Medicine
DX: R25.1 Tremor, unspecified (principal)
CPT/HCPCS: 78803; A9584

== ENCOUNTER → 2025-01-19 | Outpatient (CLI) | payer MEDICARE ==
[2025-01-19 12:36] LABS: African American GFR (CKD) >90 (>60 ml/min/1.73 sqM); Blood Urea Nitrogen 13 mg/dL (9-20); Non-African American GFR(CKD) 90 (>60 ml/min/1.73 sqM)
--- NOTE | 2025-01-19 14:25 | CT ---
EXAMINATION TYPE: CT ChestAbdPelvis w con DATE OF EXAM: 01/19/2025 COMPARISON: CT chest and abdomen dated 02/06/2023. 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 CONTRAST: CT scan of the chest, abdomen and pelvis is performed with Oral Contrast and with IV Contrast, patien t injected with 100ml mL of Isovue 300. FINDINGS: CT chest: There is no suspicious lung mass or nodule. There is a single micronodule in the left upper lobe There is no abnormal airspace/consolidative density or abnormal interstitial density. There is no pleural effusion, pleural thickening or pneumothorax. The ascending thoracic aorta is 4 cm There i0s no mediastinal, hilar or axillary adenopathy. No focal osseous lesions are seen. CT abdomen and pelvis: There is surgical absence of the gallbladder. There is no biliary ductal dilatation. There is a 17.6 mm enhancing mass in the dome of the liver. It possibly represents a hemangioma given the history of malignancy, neoplasm is not excluded. MRI of the liver with and without contrast is r ecommended. There is no solid renal mass or hydronephrosis. There is no retroperitoneal adenopathy or hemorrhage in the caliber of the abdominal aorta is normal. The bowel loops are normal in caliber and there is no dilatation or obstruction. No inflammatory george ges identified in the bowel wall and mesentery. There is no free intracranial air or fluid. There is no pelvic mass or adenopathy. There is no free fluid within the pelvis. No focal osseous lesions are seen. There is mild prostatic hypertrophy. IMPRESSION: 1. No evidence of metastatic disease within the chest. No acute cardiopulmonary disease. 2. 4 cm dilatation of the ascending thoracic aorta. 3. 17.6 mm enhancing nodule in the dome of liver. Possibly represents a benign hemangioma however MRI liver with and without contrast is recommended to exclude malignancy. 4. Mild prostatic hypertrophy [facility], , 01/19/2025 2:23 PM
== END | disposition home or self-care (01) ==
LOC: RADCTMAIN 11:55
PROVIDERS: ATTEND Internal Medicine Hematology & Oncology
DX: Z03.89 Encounter for observation for other suspected diseases and conditions ruled out (principal); C49.9 Malignant neoplasm of connective and soft tissue, unspecified; N40.0 Benign prostatic hyperplasia without lower urinary tract symptoms; I77.810 Thoracic aortic ectasia; K76.89 Other specified diseases of liver
CPT/HCPCS: 82565; 84520; 71260; 74177; 36415; Q9967